=== PATIENT | female | born 1940 | race Caucasian/White ===

== ENCOUNTER 2016-06-13 01:55 | Emergency (ER) | payer MEDICARE ==
[~2016-06-13] VITALS: Ht 157.5 cm; Wt 78.8 kg
[~2016-06-13 01:55] MED LIST: ASPI81TA82 PO; GABA400C5 OR; HYDR-3580 PO; LISI-357 PO; NEBI20 PO; NEXI40CA PO; PRAM1TAB OR; ZOFR4TAB3 SL; ZOLP5TAB3 PO
[2016-06-13 02:15] VITALS: BP 103/55; PULSE 61; RESP 16; TEMP 98.3; O2SAT 94
[2016-06-13] MEDS ORDERED: COUM3TAB PO (02:56)
[2016-06-13] MEDS ORDERED: LIPI40TA PO (02:56)
[2016-06-13] MEDS ORDERED: MICR12.5 PO (02:56)
[2016-06-13] MEDS ORDERED: DIPH1TAB36 (02:56)
[2016-06-13] MEDS ORDERED: ASPI81CH CHEW (02:56)
[2016-06-13] MEDS ORDERED: GABA800T PO (02:56)
[2016-06-13] MEDS ORDERED: FOLI400T PO (02:56)
[2016-06-13] MEDS ORDERED: COUM1TAB PO (02:56)
[2016-06-13] MEDS ORDERED: BENZ1CAP34 PO (02:56)
[2016-06-13] MEDS ORDERED: METO50TA11 PO (02:56)
[2016-06-13] MEDS ORDERED: FURO40TA PO (02:56)
[2016-06-13] MEDS ORDERED: NAPR500T PO (02:56)
[2016-06-13] MEDS ORDERED: DIAZ5 PO (03:59)
[2016-06-13] MEDS ORDERED: HYDR-3533 PO (03:59)
--- NOTE | 2016-06-13 04:00 | PD ---
HPI Chief Complaint: Back/ Neck Pain or Injury Time Seen by Provider: 03:39 Travel History International Travel<30 days: No Contact w/Intl Traveler<30days: No Traveled to known affect area: No History of Present Illness HPI The patient is a 76-year-old female who had back pain tonight. She states it was severe and radiated down both legs. She denies any bladder or bowel dysfunction. She took one hydrocodone and has been taking her gabapentin regularly and the pain is now gone. There is no radiation of pain now. She denies ever having had any muscle weakness. She does have a peripheral neuropathy and numbness down both legs which is pre-existing. Apparently, the patient was very anxious and started hyperventilating at home but this has gone away now. She is on Coumadin because of atrial fibrillation. PFSH Past Medical History Hx Anticoagulant Therapy: Yes (COUMADIN ) Atrial Fibrillation: Yes Heart Rhythm Problems: Yes (SVT) Cancer: Yes (LUNG) Cardiovascular Problems: Yes (CHF, SVT, CARDAIC STEN, AFIB ) Congestive Heart Failure: Yes Diminished Hearing: No GERD: Yes Hypertension: Yes Insomnia: Yes Neurologic: Yes (NEUOPATHY) Respiratory: Yes (2014 LUNG CANCER - LOBOTOMY 3RD R SIDE ) Shingles: Yes Past Surgical History Cardiac Surgery: Yes (CARDIAC CATH, ABLATION ) Hysterectomy: Yes Tonsillectomy: Yes Social History Alcohol Use: No Tobacco Use: No Substance Use: No Allergies-Medications (Allergen,Severity, Reaction): Coded Allergies: Codeine (Verified Allergy, Unknown, 06/13/16) Morphine (Verified Allergy, Unknown, 06/13/16) Reported Meds & Prescriptions Reported Meds & Active Scripts Active Reported Naproxen 500 Mg Tab 500 Mg PO BID Benzonatate 200 Mg Cap 200 Mg PO TID PRN Metoprolol Succinate ER 24 HR (Metoprolol Succinate) 50 Mg Tab 50 Mg PO DAILY Tylenol Pm Extra Strength (Diphenhydramine-Acetaminophen) 25-500 Mg Tab Gabapentin 800 Mg Tab 800 Mg PO TID Coumadin (Warfarin) 3 Mg Tab 3 Mg PO MF Coumadin (Warfarin) 1 Mg Tab 1.5 Mg PO SUTUWETHSA Lipitor (Atorvastatin Calcium) 40 Mg Tab 40 Mg PO HS Aspirin 81 Mg Chew 81 Mg CHEW DAILY Folic Acid 400 Mcg Tab 400 Mcg PO DAILY Furosemide 40 Mg Tab 40 Mg PO DAILY Microzide (Hydrochlorothiazide) 12.5 Mg Cap 12.5 Mg PO DAILY Review of Systems Except as stated in HPI: all other systems reviewed are Neg Physical Exam Narrative GENERAL: The patient is alert, oriented 3 and no apparent distress. Her vital signs are normal. SKIN: Warm and dry. No skin rashes present. HEAD: Atraumatic. Normocephalic. EYES: Pupils equal and round. No scleral icterus. No injection or drainage. ENT: No nasal bleeding or discharge. Mucous membranes pink and moist. NECK: Trachea midline. No JVD. CARDIOVASCULAR: Regular rate and rhythm. No murmur appreciated. RESPIRATORY: No accessory muscle use. Clear to auscultation. Breath sounds equal bilaterally. GASTROINTESTINAL: Abdomen soft, non-tender, nondistended. Hepatic and splenic margins not palpable. MUSCULOSKELETAL: No obvious deformities. No clubbing. No cyanosis. No edema. Straight leg raising is normal, deep tendon reflexes are 0+1 bilaterally both patella Achilles and pinprick shows numbness bilaterally which apparently is her normal pre-existing condition. NEUROLOGICAL: Awake and alert. No obvious cranial nerve deficits. Motor grossly within normal limits. Normal speech. PSYCHIATRIC: Appropriate mood and affect; insight and judgment normal. Data Data Last Documented VS Vital Signs Date Time Temp Pulse Resp B/P Pulse Ox O2 Delivery O2 Flow Rate FiO2 06/13/16 02:15 98.3 61 16 103/55 94 MDM Medical Decision Making Medical Screen Exam Complete: Yes Emergency Medical Condition: Yes Medical Record Reviewed: Yes Differential Diagnosis Herniated nucleus pulposus, acute lumbosacral strain, anxiety/hyperventilation Narrative Course Patient appears to have an acute lumbosacral strain. She has almost no pain now and some tenderness around L5-S1 area. This tenderness is minimal and there is no deformity. Plan: The patient was told that she may benefit from a muscle relaxant and was given a choice of Valium or Flexeril. She chose Valium because she wants to sleep and she needs to relax. The patient is also given a prescription for hydrocodone 5/325. Blood work will be drawn with an SMA-6 and PT/INR because her doctor in [place] wanted this done and told her to go to the emergency department for this. Diagnosis Primary Impression: Acute low back pain Additional Instructions: The blood work will be done in several hours and you can cook pickled meat the result in the morning if you like. Do not drink alcohol or drive on the Valium. Follow- up with your engineer as scheduled. Med/Other Pt SpecificInfo: Prescription(s) given Scripts Hydrocodone-Acetaminophen (Lortab)5-325 Mg Tab1 Tab PO Q6H PRN (PAIN) #30 TAB Ref 0 Prov:Armando Rivera MD 06/13/16 Diazepam (Valium)5 Mg Tab5 Mg PO TID #30 TAB Ref 0 Prov:Armando Rivera MD 06/13/16 Disposition: 01 DISCHARGE HOME Condition: Stable Armando Rviera MD Jun 13, 2016 04:00
[2016-06-13 04:24] LABS: INTERNATIONAL NORMALIZED RATIO 1.5 RATIO; PROTHROMBIN TIME - PATIENT 17.4 SEC (9.8-11.6)
[2016-06-13 04:37] LABS: BICARBONATE 39.1 MEQ/L (21.0-32.0)
[2016-06-13 04:39] LABS: POTASSIUM 2.8 MEQ/L (3.5-5.1)
[2016-06-13] MEDS ORDERED: POTA1TAB4 PO (04:44)
[2016-06-13 04:58] VITALS: BP 112/58
[2016-06-13] MEDS ORDERED: POTASSIUM CHLORIDE 20 MEQ CONTROLLED RELEASE TAB PO ONE (05:00)
[2016-07-30] MEDS ORDERED: WARF-58 PO (11:34)
[2016-07-30] MEDS ORDERED: HYDR12.57 PO (11:34)
== END 2016-06-13 04:59 | disposition home or self-care (01) ==
LOC: PHED 01:55
DX: M54.5 Low back pain (principal); G62.9 Polyneuropathy, unspecified; I48.91 Unspecified atrial fibrillation; Z79.01 Long term (current) use of anticoagulants; I10 Essential (primary) hypertension
CPT/HCPCS: 80048; 85610; 99283

== ENCOUNTER → 2016-07-01 | Outpatient (CLI) | payer MEDICARE ==
[~2016-07-01] MED LIST changes: +ASPI81CH CHEW; -ASPI81TA82 PO; +BENZ1CAP34 PO; +CIPR250T52 PO; +COUM1TAB PO; +COUM3TAB PO; +DIAZ5 PO; +DIPH1TAB36; +FOLI400T PO; +FURO40TA PO; -GABA400C5 OR; +GABA800T PO; +HYDR-3533 PO; -HYDR-3580 PO; +HYDR12.57 PO; +K-TA10TA PO; +LIPI40TA PO; -LISI-357 PO; +METO50TA11 PO; +MICR12.5 PO; +NAPR500T PO; -NEBI20 PO; +NEUR300C PO; -NEXI40CA PO; +OXYGENTANK NAS.CANULA; +PANT40TA3 PO; +POTA1TAB4 PO; +POTA20TA5 PO; -PRAM1TAB OR; +TEMA7.5C9 PO; +WARF-58 PO; -ZOFR4TAB3 SL; -ZOLP5TAB3 PO
== END ==
LOC: PLAB 10:11
PROVIDERS: ATTEND Internal Medicine Interventional Cardiology
DX: I25.10 Atherosclerotic heart disease of native coronary artery without angina pectoris (principal); R06.00 Dyspnea, unspecified; R78.89 Finding of other specified substances, not normally found in blood; R06.02 Shortness of breath; E78.5 Hyperlipidemia, unspecified; I48.0 Paroxysmal atrial fibrillation; Z79.899 Other long term (current) drug therapy

== ENCOUNTER → 2016-07-07 | Outpatient (CLI) | payer MEDICARE ==
[2016-07-07 11:45] LABS: INTERNATIONAL NORMALIZED RATIO 2.1 RATIO
== END ==
LOC: PLAB 10:23
DX: I48.0 Paroxysmal atrial fibrillation (principal)
CPT/HCPCS: 36415; 85610

== ENCOUNTER → 2016-07-13 | Outpatient (CLI) | payer MEDICARE | LOC: PLAB 09:47 | PROVIDERS: ATTEND Internal Medicine Interventional Cardiology | DX: I48.0 Paroxysmal atrial fibrillation (principal) | CPT/HCPCS: 36415; 83880 ==

== ENCOUNTER 2016-07-17 14:47 | Inpatient (IN) | payer MEDICARE ==
[~2016-07-17] VITALS: Ht 157.5 cm; Wt 85.4 kg
[~2016-07-17 14:47] MED LIST changes: -CIPR250T52 PO; -HYDR12.57 PO; -K-TA10TA PO; -NEUR300C PO; -OXYGENTANK NAS.CANULA; -PANT40TA3 PO; -POTA20TA5 PO; -TEMA7.5C9 PO; -WARF-58 PO
[2016-07-17 14:51] VITALS: BP 116/52; PULSE 69; RESP 16; TEMP 97.8; O2SAT 92
--- NOTE | 2016-07-17 15:35 | PD ---
HPI Chief Complaint: General Weakness Time Seen by Provider: 15:24 Travel History International Travel<30 days: No Contact w/Intl Traveler<30days: No Traveled to known affect area: No History of Present Illness HPI Patient presents for generalized weakness. Reports a cough with mild dyspnea. Reports a history of lung cancer with lobectomy, atrial fibrillation, heart failure, coronary artery disease, SVT and neuropathy. Reports lower extremity swelling that is progressively getting worse over last [address] Encarnacion. Reports difficulty urinating. Denies nausea vomiting diarrhea or fever. Denies chest pain. Compliant with Lasix for fluid retention, Coumadin for anticoagulation with A. fib, beta larisa for rate control. Denies any history of hypothyroidism. PFSH Past Medical History Hx Anticoagulant Therapy: Yes (COUMADIN ) Atrial Fibrillation: Yes Heart Rhythm Problems: Yes (SVT) Cancer: Yes (LUNG) Cardiovascular Problems: Yes (CHF, SVT, CARDAIC STEN, AFIB ) Congestive Heart Failure: Yes Diminished Hearing: No GERD: Yes Hypertension: Yes Insomnia: Yes Neurologic: Yes (NEUOPATHY) Respiratory: Yes (2014 LUNG CANCER - LOBOTOMY 3RD R SIDE ) Shingles: Yes Influenza Vaccination: Yes ?: Not Past Surgical History Cardiac Surgery: Yes (CARDIAC CATH, ABLATION ) Hysterectomy: Yes Tonsillectomy: Yes Social History Alcohol Use: No Tobacco Use: No Substance Use: No Allergies-Medications (Allergen,Severity, Reaction): Coded Allergies: Codeine (Verified Allergy, Unknown, 07/17/16) Morphine (Verified Allergy, Unknown, 07/17/16) Reported Meds & Prescriptions Reported Meds & Active Scripts Active Lortab (Hydrocodone-Acetaminophen) 5-325 Mg Tab 1 Tab PO Q6H PRN Reported Naproxen 500 Mg Tab 500 Mg PO BID Metoprolol Succinate ER 24 HR (Metoprolol Succinate) 50 Mg Tab 50 Mg PO DAILY Tylenol Pm Extra Strength (Diphenhydramine-Acetaminophen) 25-500 Mg Tab Gabapentin 800 Mg Tab 800 Mg PO TID Coumadin (Warfarin) 3 Mg Tab 3 Mg PO MF Coumadin (Warfarin) 1 Mg Tab 1.5 Mg PO SUTUWETHSA Lipitor (Atorvastatin Calcium) 40 Mg Tab 40 Mg PO HS Aspirin 81 Mg Chew 81 Mg CHEW DAILY Folic Acid 400 Mcg Tab 400 Mcg PO DAILY Furosemide 40 Mg Tab 20 Mg PO DAILY Review of Systems General / Constitutional: No: Fever Eyes: No: Visual changes HENT: No: Headaches Cardiovascular: No: Chest Pain or Discomfort Respiratory: Positive: Cough, No: Shortness of Breath Gastrointestinal: No: Abdominal Pain Genitourinary: Positive: Dysuria Musculoskeletal: Positive: Edema, No: Pain Skin: No Rash Neurologic: Positive: Weakness Psychiatric: No: Depression Endocrine: No: Polydipsia Hematologic/Lymphatic: No: Easy Bruising Physical Exam Narrative GENERAL: Well-nourished, well-developed patient. SKIN: Focused skin assessment warm/dry. HEAD: Normocephalic. EYES: No scleral icterus. No injection or drainage. NECK: Supple, trachea midline. No JVD or lymphadenopathy. CARDIOVASCULAR: Regular rate and rhythm without murmurs, gallops, or rubs. RESPIRATORY: Breath sounds decreased right lower lobe. No accessory muscle use. GASTROINTESTINAL: Abdomen soft, non-tender, nondistended. MUSCULOSKELETAL: No cyanosis, 3+ edema. BACK: Nontender without obvious deformity. No CVA tenderness. Data Data Last Documented VS Vital Signs Date Time Temp Pulse Resp B/P Pulse Ox O2 Delivery O2 Flow Rate FiO2 07/17/16 15:49 98 2 07/17/16 15:42 64 18 115/52 Room Air 07/17/16 14:51 97.8 Orders Complete Blood Count With Diff (07/17/16 15:24) Comprehensive Metabolic Panel (07/17/16 15:24) Urinalysis - C+S If Indicated (07/17/16 15:24) Chest, Single Ap (07/17/16 ) B-Type Natriuretic Peptide (07/17/16 15:24) Urine Culture (07/17/16 15:40) Ceftriaxone Inj (Rocephin Inj) (07/17/16 16:15) Prothrombin Time / Inr (Pt) (07/17/16 16:13) Act Partial Throm Time (Ptt) (07/17/16 16:13) Admit Order (Ed Use Only) (07/17/16 16:30) Labs Laboratory Tests Test 07/17/16 07/17/16 07/17/16 15:11 15:15 15:40 White Blood Count 9.0 TH/MM3 Red Blood Count 3.20 MIL/MM3 Hemoglobin 8.4 GM/DL Hematocrit 25.6 % Mean Corpuscular Volume 80.1 FL Mean Corpuscular Hemoglobin 26.1 PG Mean Corpuscular Hemoglobin 32.6 % Concent Red Cell Distribution Width 19.2 % Platelet Count 337 TH/MM3 Mean Platelet Volume 7.3 FL Neutrophils (%) (Auto) 64.0 % Lymphocytes (%) (Auto) 19.9 % Monocytes (%) (Auto) 8.9 % Eosinophils (%) (Auto) 6.5 % Basophils (%) (Auto) 0.7 % Neutrophils # (Auto) 5.7 TH/MM3 Lymphocytes # (Auto) 1.8 TH/MM3 Monocytes # (Auto) 0.8 TH/MM3 Eosinophils # (Auto) 0.6 TH/MM3 Basophils # (Auto) 0.1 TH/MM3 CBC Comment DIFF FINAL Differential Comment Prothrombin Time 44.6 SEC Prothromb Time International 3.8 RATIO Ratio Activated Partial 40.6 SEC Thromboplast Time Sodium Level 141 MEQ/L Potassium Level 3.3 MEQ/L Chloride Level 99 MEQ/L Carbon Dioxide Level 32.8 MEQ/L Anion Gap 9 MEQ/L Blood Urea Nitrogen 31 MG/DL Creatinine 1.80 MG/DL Estimat Glomerular Filtration 27 ML/MIN Rate Random Glucose 135 MG/DL Calcium Level 8.6 MG/DL Total Bilirubin 0.5 MG/DL Aspartate Amino Transf 74 U/L (AST/SGOT) Alanine Aminotransferase 37 U/L (ALT/SGPT) Alkaline Phosphatase 91 U/L B-Type Natriuretic Peptide 415 PG/ML Total Protein 6.0 GM/DL Albumin 3.1 GM/DL Total Creatine Kinase 87 U/L Urine Collection Type CLEAN CATCH Urine Color YELLOW Urine Turbidity MOD Urine pH 5.5 Urine Specific [place] 1.016 Urine Protein NEG mg/dL Urine Glucose (UA) NEG mg/dL Urine Ketones TRACE mg/dL Urine Occult Blood NEG Urine Nitrite NEG Urine Bilirubin NEG Urine Leukocyte Esterase LARGE Urine RBC 0-3 /hpf Urine WBC 100-200 /hpf Urine WBC Clumps FEW Urine Squamous Epithelial > 8 /hpf Cells Urine Transitional Epithelial 0-5 /hpf Cells Urine Amorphous Sediment FEW Urine Bacteria MANY /hpf Microscopic Urinalysis Comment CULTURE INDICATED Urine Collection Time 1540 MDM Medical Decision Making Medical Screen Exam Complete: Yes Emergency Medical Condition: Yes Differential Diagnosis Pneumonia, viral infection, CHF exacerbation, pulmonary edema, UTI, fluid retention Narrative Course Assessment and plan discussed with patient and at bedside. EKG revealed sinus rhythm with PACs rate of 71 questionable first degree block. Physician Communication Physician Communication Case discussed and care transferred to Dr. Hoff. Grayson Lopes MD Jul 17, 2016 15:35
[2016-07-17 15:37] LABS: AUTOMATED NEUTROPHIL # 5.7 TH/MM3 (1.8-7.7); BASOPHIL # 0.1 TH/MM3 (0-0.2); BASOPHIL % 0.7 % (0.0-2.0); EOSINOPHIL # 0.6 TH/MM3 (0-0.4); EOSINOPHIL % 6.5 % (0.0-4.0); HEMATOCRIT 25.6 % (35.0-46.0); HEMO FLAGS DIFF FINAL; LYMPH % 19.9 % (9.0-44.0); LYMPHOCYTE # 1.8 TH/MM3 (1.0-4.8); MEAN CELL VOLUME 80.1 FL (80.0-100.0); MEAN CORPUSCULAR HEMOGLOBIN 26.1 PG (27.0-34.0); MEAN CORPUSCULAR HGB CONC 32.6 % (32.0-36.0); MONO % 8.9 % (0.0-8.0); PLATELET COUNT 337 TH/MM3 (150-450); RED CELL DISTRIBUTION WIDTH 19.2 % (11.6-17.2)
[2016-07-17 15:42] VITALS: BP 115/52; PULSE 64; RESP 18; O2SAT 97
[2016-07-17 15:46] LABS: CHLORIDE 99 MEQ/L (98-107); POTASSIUM 3.3 MEQ/L (3.5-5.1); SODIUM (NA) 141 MEQ/L (136-145)
[2016-07-17 15:46] LABS: BLOOD, URINE NEG (NEG); GLUCOSE,URINE NEG (NEG); KETONE, URINE TRACE mg/dL (NEG); NITRITE,URINE NEG (NEG); PH, URINE 5.5 (5.0-8.5)
[2016-07-17 15:50] LABS: ANION GAP 9 MEQ/L (5-15); BICARBONATE 32.8 MEQ/L (21.0-32.0); BLOOD UREA NITROGEN 31 MG/DL (7-18)
[2016-07-17 15:52] LABS: BACTERIA, URINE MANY /hpf; COMMENT (UR) CULTURE INDICATED; CULTURE IF INDICATED CULTURE INDICATED; METHOD OF COLLECTION CLEAN CATCH; RBC, URINE 0-3 /hpf (0-3); SQUAMOUS EPITHELIAL CELL URINE > 8 /hpf (0-5); URINE COLOR YELLOW (YELLW/STRAW); WBC, URINE 100-200 /hpf (0-5)
[2016-07-17 15:53] LABS: TRANSITIONAL EPI CELLS, URINE 0-5 /hpf
[2016-07-17 15:53] LABS: ALT (GPT) 37 U/L (10-53); AST (GOT) 74 U/L (15-37); GLOMERULAR FILTRATION RATE 27 ML/MIN (>89)
[2016-07-17 15:54] LABS: TOTAL BILIRUBIN ADULT 0.5 MG/DL (0.2-1.0)
[2016-07-17 15:55] LABS: ALKALINE PHOSPHATASE 91 U/L (45-117)
--- NOTE | 2016-07-17 16:12 | RADHPO ---
EXAM DATE/TIME: 07/17/2016 15:43 [facility] COMPARISON: No previous studies available for comparison. INDICATIONS : Patient states chest pressure today. MEDICAL HISTORY : Hypercholesterolemia. SURGICAL HISTORY : Coronary artery stent. ENCOUNTER: Initial ACUITY: 1 day PAIN SCORE: 4/10 LOCATION: Bilateral chest FINDINGS: A single view of the chest demonstrates the lungs to be grossly clear. There is blunting of the right costophrenic angle which could represent either a small effusion versus pleural thickening. Otherwis e no significant pleural effusions are seen. The heart size is within normal limits. There is no pulm onary edema. The left lung is grossly clear. The bony structures are grossly intact.. CONCLUSION: Mild blunting of the right costophrenic angle which could represent either small effusion versus pleu ral thickening. Otherwise, the lungs are clear bilaterally. Juan Alberto Lopez MD on July 17, 2016 at 16:10 Board Certified Radiologist. This report was verified electronically.
[2016-07-17] MEDS ORDERED: cefTRIAXone INJ 1,000 MG in SODIUM CHLORIDE 0.9% INJ 100 ML IV ONE (16:15)
--- NOTE | 2016-07-17 16:20 | PD ---
Physical Exam Narrative The patient was initially evaluated by the previous provider and signed out to me at the beginning of my shift pending labs, chest x-ray, and disposition. See his note for further details. Briefly this is a 76-year-old female with history of lung cancer with right lower lobe lobectomy, CAD, CABG, A. fib on Coumadin, currently being treated by multimedia author Dr. Encarnacion, here for evaluation of generalized weakness, cough, difficulty with urination. On physical exam the patient is resting comfortably , keeping her eyes closed. There are no focal neurologic deficits. Her lung sounds are clear and equal bilaterally. She is in no respiratory distress. She has mild bilateral lower extremity edema. Abdominal exam is benign. Initial vital signs show heart rate 69, blood pressure 116/52, pulse ox 92% on room air, oral temp of 97.8F. CBC is remarkable for hemoglobin of 8.4 and a hematocrit of 25.6. The patient had labs drawn on 07/02/16 and her hemoglobin was 9.3, hematocrit 28.5. Her stool is heme-negative and brown. CMP is remarkable for potassium 3.3, bicarbonate 32.8, BUN 31, creatinine 1.8, GFR 27 which is slightly worse than her baseline. BNP is 415. UA is suggestive of UTI. The patient was started on Rocephin. Chest x-ray shows mild blunting of the right costophrenic angle which could refer percent either small effusion versus pleural thickening, otherwise lungs are clear bilaterally. EKG shows sinus rhythm, rate 71, left axis deviation, low QRS voltages in precordial leads , Q waves in inferior leads. Patient was made aware of all findings. She feels too weak to go home to take care of herself. The also agrees with this. She will be admitted for overnight observation for UTI, generalized weakness, anemia. Case discussed with hospitalist Dr. Lau who will admit the patient to his service. Data Data Last Documented VS Vital Signs Date Time Temp Pulse Resp B/P Pulse Ox O2 Delivery O2 Flow Rate FiO2 07/17/16 15:49 98 2 07/17/16 15:42 64 18 115/52 Room Air 07/17/16 14:51 97.8 Orders Complete Blood Count With Diff (07/17/16 15:24) Comprehensive Metabolic Panel (07/17/16 15:24) Urinalysis - C+S If Indicated (07/17/16 15:24) Chest, Single Ap (07/17/16 ) B-Type Natriuretic Peptide (07/17/16 15:24) Urine Culture (07/17/16 15:40) Ceftriaxone Inj (Rocephin Inj) (07/17/16 16:15) Prothrombin Time / Inr (Pt) (07/17/16 16:13) Act Partial Throm Time (Ptt) (07/17/16 16:13) Admit Order (Ed Use Only) (07/17/16 16:30) Labs Laboratory Tests Test 07/17/16 07/17/16 15:11 15:40 White Blood Count 9.0 TH/MM3 Red Blood Count 3.20 MIL/MM3 Hemoglobin 8.4 GM/DL Hematocrit 25.6 % Mean Corpuscular Volume 80.1 FL Mean Corpuscular Hemoglobin 26.1 PG Mean Corpuscular Hemoglobin 32.6 % Concent Red Cell Distribution Width 19.2 % Platelet Count 337 TH/MM3 Mean Platelet Volume 7.3 FL Neutrophils (%) (Auto) 64.0 % Lymphocytes (%) (Auto) 19.9 % Monocytes (%) (Auto) 8.9 % Eosinophils (%) (Auto) 6.5 % Basophils (%) (Auto) 0.7 % Neutrophils # (Auto) 5.7 TH/MM3 Lymphocytes # (Auto) 1.8 TH/MM3 Monocytes # (Auto) 0.8 TH/MM3 Eosinophils # (Auto) 0.6 TH/MM3 Basophils # (Auto) 0.1 TH/MM3 CBC Comment DIFF FINAL Differential Comment Sodium Level 141 MEQ/L Potassium Level 3.3 MEQ/L Chloride Level 99 MEQ/L Carbon Dioxide Level 32.8 MEQ/L Anion Gap 9 MEQ/L Blood Urea Nitrogen 31 MG/DL Creatinine 1.80 MG/DL Estimat Glomerular Filtration 27 ML/MIN Rate Random Glucose 135 MG/DL Calcium Level 8.6 MG/DL Total Bilirubin 0.5 MG/DL Aspartate Amino Transf 74 U/L (AST/SGOT) Alanine Aminotransferase 37 U/L (ALT/SGPT) Alkaline Phosphatase 91 U/L B-Type Natriuretic Peptide 415 PG/ML Total Protein 6.0 GM/DL Albumin 3.1 GM/DL Urine Collection Type CLEAN CATCH Urine Color YELLOW Urine Turbidity MOD Urine pH 5.5 Urine Specific [place] 1.016 Urine Protein NEG mg/dL Urine Glucose (UA) NEG mg/dL Urine Ketones TRACE mg/dL Urine Occult Blood NEG Urine Nitrite NEG Urine Bilirubin NEG Urine Leukocyte Esterase LARGE Urine RBC 0-3 /hpf Urine WBC 100-200 /hpf Urine WBC Clumps FEW Urine Squamous Epithelial > 8 /hpf Cells Urine Transitional Epithelial 0-5 /hpf Cells Urine Amorphous Sediment FEW Urine Bacteria MANY /hpf Microscopic Urinalysis Comment CULTURE INDICATED Urine Collection Time 1540 MDM Supervised Visit with JERO: No Diagnosis Primary Impression: Generalized weakness Additional Impressions: UTI (urinary tract infection) Qualified Code: N39.0 - Urinary tract infection without hematuria, site unspecified Anemia Qualified Code: D64.9 - Anemia, unspecified type Renal insufficiency Admitting Information Admitting Physician Requests: Observation Seun Hoff MD Jul 17, 2016 16:20
[2016-07-17 16:31] LABS: APTT (PATIENT) 40.6 SEC (24.3-30.1); INTERNATIONAL NORMALIZED RATIO 3.8 RATIO; PROTHROMBIN TIME - PATIENT 44.6 SEC (9.8-11.6)
[2016-07-17 16:43] VITALS: BP 124/56; PULSE 66; RESP 18; O2SAT 98
[2016-07-17] MEDS ORDERED: BISACODYL 10 MG SUPP RECTAL PRN (16:45)
[2016-07-17] MEDS ORDERED: SODIUM CHLORIDE 0.9% FLUSH 10 ML FLUSH IV FLUSH PRN (16:45)
[2016-07-17] MEDS ORDERED: NALOXONE HCL 0.4 MG/ML AMP IV PRN (16:45)
[2016-07-17] MEDS ORDERED: ONDANSETRON HCL 4 MG/2 ML VIAL IVP PRN (16:45)
[2016-07-17] MEDS ORDERED: WARFARIN SOD 1 MG TAB PO SCH (16:45)
[2016-07-17 18:07] VITALS: BP 128/78; PULSE 68; RESP 18; TEMP 98; O2SAT 96
--- NOTE | 2016-07-17 18:44 | RADHPO ---
EXAM DATE/TIME: 07/17/2016 18:02 [facility] COMPARISON: No previous studies available for comparison. INDICATIONS : Flank pain. MEDICAL HISTORY : Carcinoma, lung. CHF. SVT. A-fib. Neuropathy. SURGICAL HISTORY : Tonsillectomy. Cardiac cath. Right lung lobotomy. ENCOUNTER: Initial ACUITY: 2 days PAIN SCORE: 8/10 LOCATION: Bilateral flank MEASUREMENTS: RIGHT KIDNEY: 9.2 x 4.9 x 5.0 cm LEFT KIDNEY: 9.7 x 5.4 x 4.4 cm FINDINGS: RIGHT KIDNEY: Renal cortex is thinned . No hydronephrosis, stone, or mass. LEFT KIDNEY: Renal cortex is thin and. No hydronephrosis, stone. There appears to be a complex cyst in the midpol e measuring 1.3 cm. The upper pole appears to be probably lobulated. Hard to exclude a small mass in this area. BLADDER: Paniagua catheter in place.. CONCLUSION: 1. No evidence of hydronephrosis. 2. There is cortical thinning of both kidneys. 3. There appears to be a complex cyst along the midpole left kidney. 4. The upper pole the left looks somewhat lobulated. Cannot completely exclude a mass in this locatio n. Therefore, if clinically indicated recommend a CT scan of the abdomen with IV contrast Juan Alberto Lopez MD on July 17, 2016 at 18:39 Board Certified Radiologist. This report was verified electronically.
[2016-07-17] MEDS: GABAPENTIN 300 MG CAP PO SCH (19:16)
[2016-07-17] MEDS: HEPARIN SODIUM - SQ 10,000 UNITS/ML VIAL SQ SCH (19:17)
[2016-07-17 20:40] VITALS: BP 114/46; PULSE 70; RESP 16; TEMP 98.1; O2SAT 97
[2016-07-17] MEDS: SODIUM CHLORIDE 0.9% FLUSH 10 ML FLUSH IV FLUSH SCH (21:00)
[2016-07-17] MEDS: diphenhydrAMINE HCL 25 MG CAP PO PRN (21:48)
[2016-07-17] MEDS ORDERED: NAPROXEN 250 MG TAB PO ONE (23:45)
[2016-07-18] VITALS (8 sets, daily range): BP systolic 113–151; BP diastolic 53–66; PULSE 69–74; RESP 15–18; TEMP 96.5–98; O2SAT 90–100
[2016-07-18] MEDS: GABAPENTIN 300 MG CAP PO SCH ×2 (07:14→17:58)
[2016-07-18] MEDS: HEPARIN SODIUM - SQ 10,000 UNITS/ML VIAL SQ SCH ×2 (07:14→21:02)
[2016-07-18 08:02] LABS: CHLORIDE 99 MEQ/L (98-107); POTASSIUM 3.5 MEQ/L (3.5-5.1); SODIUM (NA) 142 MEQ/L (136-145)
[2016-07-18 08:08] LABS: AUTOMATED NEUTROPHIL # 4.9 TH/MM3 (1.8-7.7); BASOPHIL # 0.1 TH/MM3 (0-0.2); BASOPHIL % 0.7 % (0.0-2.0); EOSINOPHIL # 0.5 TH/MM3 (0-0.4); HEMATOCRIT 24.6 % (35.0-46.0); HEMO FLAGS DIFF FINAL; LYMPHOCYTE # 1.6 TH/MM3 (1.0-4.8); MEAN CELL VOLUME 80.8 FL (80.0-100.0); MEAN CORPUSCULAR HGB CONC 32.1 % (32.0-36.0); MONO % 8.5 % (0.0-8.0); NEUT % 62.8 % (16.0-70.0); PLATELET COUNT 278 TH/MM3 (150-450); RED BLOOD COUNT 3.05 MIL/MM3 (4.00-5.30); RED CELL DISTRIBUTION WIDTH 19.9 % (11.6-17.2); WHITE BLOOD COUNT 7.8 TH/MM3 (4.0-11.0)
[2016-07-18 08:09] LABS: ANION GAP 10 MEQ/L (5-15); BICARBONATE 32.8 MEQ/L (21.0-32.0)
[2016-07-18 08:10] LABS: ALT (GPT) 28 U/L (10-53); AST (GOT) 45 U/L (15-37); BLOOD UREA NITROGEN 33 MG/DL (7-18)
[2016-07-18 08:11] LABS: GLOMERULAR FILTRATION RATE 34 ML/MIN (>89)
[2016-07-18 08:12] LABS: TOTAL BILIRUBIN ADULT 0.6 MG/DL (0.2-1.0)
[2016-07-18 08:13] LABS: ALKALINE PHOSPHATASE 85 U/L (45-117)
[2016-07-18 09:20] LABS: INTERNATIONAL NORMALIZED RATIO 3.1 RATIO; PROTHROMBIN TIME - PATIENT 35.7 SEC (9.8-11.6)
[2016-07-18] MEDS: PIPERACIL-TAZO 3.375 GM PREMIX 50 ML IV SCH ×2 (09:35→17:58)
[2016-07-18] MEDS: METOPROLOL SUCCINATE 50 MG EXTENDED RELEASE TAB PO SCH (09:35)
[2016-07-18] MEDS: SODIUM CHLORIDE 0.9% FLUSH 10 ML FLUSH IV FLUSH SCH ×2 (09:35→21:00)
[2016-07-18] MEDS ORDERED: RESP: ALBUTEROL 1.25 MG/3 ML NEB (PRN) NEB (10:00)
--- NOTE | 2016-07-18 10:30 | EKG ---
Date Performed: 07/17/2016 Time Performed: 14:58:08 PTAGE: 76 years EKG: Sinus rhythm with PAC(s) Possible inferior infarct - age undetermined QRS changes V3/V4 may be due to LVH but can not rule out anterior infarct Low QRS voltages in precordial leads Compared to prior tracing no signi ficant change Abnormal ECG PREVIOUS TRACING : 06/09/2004 13.52 DOCTOR: Tyler Mccann Interpretating Date/Time 07/18/2016 10:26:02
[2016-07-18] MEDS ORDERED: DIATRIZOATE MEGLUM/DIATRIZOATE SOD 9 ML CUP PO ONE (12:30)
--- NOTE | 2016-07-18 15:47 | RADHPO ---
EXAM DATE/TIME: 07/18/2016 14:46 This report includes an Addendum and supersedes previous reports for this exam. [facility] COMPARISON: No previous studies available for comparison. INDICATIONS : General weakness. ORAL CONTRAST: No oral contrast ingested. RADIATION DOSE: 19.84 CTDIvol (mGy) MEDICAL HISTORY : Cardiovascular disease. Carcinoma, lung. SURGICAL HISTORY : Hysterectomy. ENCOUNTER: Initial ACUITY: 1 day PAIN SCALE: 4/10 LOCATION: abdomen TECHNIQUE: Volumetric scanning of the abdomen and pelvis was performed. Using automated exposure control and ad justment of the mA and/or kV according to patient size, radiation dose was kept as low as reasonably achievable to obtain optimal diagnostic quality images. FINDINGS: There is a small right-sided pleural effusion. Linear atelectasis or scarring at the lung bases. No a cute findings identified in the liver, spleen, adrenals, kidneys or pancreas. Dependent gallstones pr esent the gallbladder. No blurry ductal dilatation. There is sigmoid diverticulosis without evidence for diverticulitis. Paniagua catheter present in decomp ressed bladder. Mild anasarca. CONCLUSION: Small right effusion with minimal linear atelectasis and scarring at the lung bases. Small hiatal her dalila. Calcified gallstones without ductal dilatation. No acute findings within the abdomen and pelvis. Mild anasarca. Colonic diverticulosis. Dutch Ulloa MD on July 18, 2016 at 15:40 Board Certified Radiologist. This report was verified electronically. ADDENDUM: I reviewed prior ultrasound from July 17. The lobulated appearance in the upper left kidney seen on u ltrasound is not appreciated on CT examination. Exam however was performed without contrast and subtl e renal solid lesions could easily be missed on noncontrast CT. If renal function is adequate, kidney s would be better evaluated with contrast CT examination or MRI. Dutch Ulloa MD on July 19, 2016 at 21:11 Board Certified Radiologist. This report was verified electronically.
[2016-07-18] MEDS ORDERED: WARFARIN SOD 1 MG TAB PO SCH (16:00)
[2016-07-18] MEDS ORDERED: cefTRIAXone INJ 1,000 MG in SODIUM CHLORIDE 0.9% INJ 100 ML IV SCH (16:00)
[2016-07-18] MEDS ORDERED: TEMAZEPAM 7.5 MG CAP PO PRN (17:00)
[2016-07-18] MEDS: diphenhydrAMINE HCL 25 MG CAP PO PRN (21:02)
[2016-07-18] MEDS ORDERED: POTASSIUM CHLORIDE 20 MEQ CONTROLLED RELEASE TAB PO ONE (22:30)
[2016-07-18] MEDS ORDERED: FUROSEMIDE 20 MG/2 ML VIAL IV PUSH ONE (22:30)
--- NOTE | 2016-07-18 22:38 | HHI.HP ---
HPI Service [facility] Primary Care Physician Non-Staff Admission Diagnosis generalized weakness, UTI, anemia, renal insufficiency Diagnoses: Chief Complaint: somnolence Travel History International Travel<30 Days: No Contact w/Intl Traveler <30 Da: No Traveled to Known Affected Are: No History of Present Illness Patient presents to ER for 1 month history of progressively worsening somnolence , generalized fatigue, shortness of breath with exertion without chest pain, as well as bilateral lower extremity swelling. She also reports a one-month history of bilateral, constant, sharp low back pain worsened with movement. Recent increase of gabapentin dose 1 month ago. Patient said she has been experience somnolent over the past month, will fall asleep while sitting up. Friends say that she appears drunk at times. Patient had an echocardiogram 1.5 months ago which was reportedly okay. She denies any dysuria. Denies any fevers, nausea, vomiting, diarrhea, constipation. Patient left [place] for [place] 1 month ago on vacation. She reports that creatinine prior to vacation was initially 1.4, however just before vacation 1.5. Echocardiogram performed prior to her vacation reportedly without any change according to her primary airplane inspector back home. Again, she does note that gabapentin was increased one month ago. She has been taking naproxen as needed for her back. She denies any black tarry stools or bloody stool. Review of Systems performed and negative except for HPI and past medical history. Past Family Social History Past Medical History Congestive heart failure GERD Restless leg syndrome Hyperlipidemia Hypertension Anxiety Chronic musculoskeletal pain Past Surgical History Cardiac catheter. Ablation for arrhythmia. Right lower lobectomy for lung cancer. In 2015. Patient says she did not require any chemotherapy. Hysterectomy Cervical fusion Rotator cuff surgery Cataract surgery Reported Medications Lortab (Hydrocodone-Acetaminophen) 5-325 Mg Tab 1 Tab PO Q6H PRN Reported Naproxen 500 Mg Tab 500 Mg PO BID Metoprolol Succinate ER 24 HR (Metoprolol Succinate) 50 Mg Tab 50 Mg PO DAILY Tylenol Pm Extra Strength (Diphenhydramine-Acetaminophen) 25-500 Mg Tab Gabapentin 800 Mg Tab 800 Mg PO TID Coumadin (Warfarin) 3 Mg Tab 3 Mg PO MF Coumadin (Warfarin) 1 Mg Tab 1.5 Mg PO SUTUWETHSA Lipitor (Atorvastatin Calcium) 40 Mg Tab 40 Mg PO HS Aspirin 81 Mg Chew 81 Mg CHEW DAILY Folic Acid 400 Mcg Tab 400 Mcg PO DAILY Furosemide 40 Mg Tab 20 Mg PO DAILY Allergies: Coded Allergies: Codeine (Verified Allergy, Unknown, 07/17/16) Morphine (Verified Allergy, Unknown, 07/17/16) Family History Mother at advanced age from kidney cancer reportedly. Father from traumatic injury. Social History Patient is nonsmoker, nondrinker, denies illicit drugs. Physical Exam Vital Signs Vital Signs Date Time Temp Pulse Resp B/P Pulse Ox O2 Delivery O2 Flow Rate FiO2 07/18/16 16:00 97.7 72 18 126/60 97 07/18/16 12:00 97.8 69 18 113/53 97 07/18/16 08:00 96.5 74 18 123/61 97 07/18/16 07:57 90 21 07/18/16 07:48 98 Nasal Cannula 2.00 07/18/16 00:36 71 151/66 07/18/16 00:35 98.0 71 15 151/66 100 07/18/16 00:35 71 151/66 Physical Exam GENERAL: This is a well-nourished, well-developed patient, in no apparent distress.she is alert and oriented 3. at bedside. Says she appears to have improved. SKIN: No rashes, ecchymoses or lesions. Cool and dry. HEAD: Atraumatic. Normocephalic. No temporal or scalp tenderness. EYES: Pupils equal round and reactive. Extraocular motions intact. No scleral icterus. No injection or drainage. ENT: Nose without bleeding, purulent drainage or septal hematoma. Throat without erythema, tonsillar hypertrophy or exudate. Uvula midline. Airway patent. NECK: Trachea midline. No JVD or lymphadenopathy, although exam limited by obesity. Supple, nontender, no meningeal signs. CARDIOVASCULAR: Regular rate and rhythm without murmurs, gallops, or rubs. RESPIRATORY: Clear to auscultation. Breath sounds equal bilaterally. No wheezes , rales, or rhonchi. GASTROINTESTINAL: Abdomen soft, non-tender, nondistended. No hepato-splenomegaly , or palpable masses. No guarding. MUSCULOSKELETAL: Extremities without clubbing, cyanosis. No joint tenderness, effusion. patient does have 2+ bilateral lower extremity edema. Faint erythema. Some noninfected appearing excoriations.No calf tenderness. Negative Homans sign bilaterally. NEUROLOGICAL: Awake and alert. Cranial nerves II through XII intact. Motor and sensory grossly within normal limits. Five out of 5 muscle strength in all muscle groups. Normal speech. Laboratory Laboratory Tests Test 07/18/16 07/18/16 06:50 08:51 White Blood Count 7.8 Red Blood Count 3.05 Hemoglobin 7.9 Hematocrit 24.6 Mean Corpuscular Volume 80.8 Mean Corpuscular Hemoglobin 26.0 Mean Corpuscular Hemoglobin 32.1 Concent Red Cell Distribution Width 19.9 Platelet Count 278 Mean Platelet Volume 7.4 Neutrophils (%) (Auto) 62.8 Lymphocytes (%) (Auto) 21.0 Monocytes (%) (Auto) 8.5 Eosinophils (%) (Auto) 7.0 Basophils (%) (Auto) 0.7 Neutrophils # (Auto) 4.9 Lymphocytes # (Auto) 1.6 Monocytes # (Auto) 0.7 Eosinophils # (Auto) 0.5 Basophils # (Auto) 0.1 CBC Comment DIFF FINAL Differential Comment Sodium Level 142 Potassium Level 3.5 Chloride Level 99 Carbon Dioxide Level 32.8 Anion Gap 10 Blood Urea Nitrogen 33 Creatinine 1.50 Estimat Glomerular Filtration 34 Rate Random Glucose 95 Calcium Level 8.6 Total Bilirubin 0.6 Aspartate Amino Transf 45 (AST/SGOT) Alanine Aminotransferase 28 (ALT/SGPT) Alkaline Phosphatase 85 Total Protein 5.8 Albumin 2.9 Prothrombin Time 35.7 Prothromb Time International 3.1 Ratio Date/Time Procedure Status Source Growth 07/17/16 15:40 Urine Culture - Preliminary Resulted Urine Clean Catch IMMATURE GROWTH - REINCUBATE Result Diagram: 07/18/16 0650 07/18/16 0650 Imaging Last Impressions Abdomen/Pelvis CT 07/18/16 0000 Signed Impressions: Service Date/Time: Monday, July 18, 2016 14:46 - CONCLUSION: Small right effusion with minimal linear atelectasis and scarring at the lung bases. Small hiatal hernia. Calcified gallstones without ductal dilatation. No acute findings within the abdomen and pelvis. Mild anasarca. Colonic diverticulosis. Dutch Ulloa MD Renal Ultrasound 07/17/16 0000 Signed Impressions: Service Date/Time: Sunday, July 17, 2016 18:02 - CONCLUSION: 1. No evidence of hydronephrosis. 2. There is cortical thinning of both kidneys. 3. There appears to be a complex cyst along the midpole left kidney. 4. The upper pole the left looks somewhat lobulated. Cannot completely exclude a mass in this location. Therefore, if clinically indicated recommend a CT scan of the abdomen with IV contrast Juan Alberto Lopez MD Chest X-Ray 07/17/16 0000 Signed Impressions: Service Date/Time: Sunday, July 17, 2016 15:43 - CONCLUSION: Mild blunting of the right costophrenic angle which could represent either small effusion versus pleural thickening. Otherwise, the lungs are clear bilaterally. Juan Alberto Lopez MD Assessment and Plan Assessment and Plan //Toxic encephalopathy. -Still oriented. -Likely secondary to gabapentin buildup and toxicity due to kidney failure. Recent increase in gabapentin dosage -No focal signs or symptoms. We will keep on lower dose of gabapentin. Continue to treat UTI as below - Appears to already be improving. Continue to monitor. //Urinary tract infection. Acute. -Grossly positive urinalysis. Await urine culture. -Due to concern for anatomic abnormality regarding kidney, ceftriaxone was switched to Zosyn. CT abdomen with no acute findings. Patient with known history of kidney mass. -Follow up cultures. Continue antibiotics. //Acute kidney injury.. Avoid any naproxen. Improving with fluids. Continue to monitor. //History of CHF. //Fluid overload. -Bilateral lower extremity edema. -BNP elevated in the 400s.. Possible small pleural effusion however this is likely secondary to right upper lobectomy. -Gentle diuresis, fluid restrictions. Avoid NSAIDs //History of atrial fibrillation. Continue beta larisa. Continue warfarin. //Hyperlipidemia. Chronic. Continue statin //Kidney mass. -Possible left kidney mass seen on ultrasound. Due to acute kidney injury with a history of CHF, noncontrast CT was performed for evaluation of mass. 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 -She'll need to follow-up with primary care as outpatient. //Anemia. Iron studies. B12. Reticulocyte. Possibly symptomatic. Could be secondary to silent GI bleed from ulcer versus kidney disease, versus anemia of inflammation from chronic infection. Place on Protonix. Follow-up labs.. -Patient appears to be improving on lower dose of gabapentin, improvement in renal function. If patient is symptomatic, transfuse for hemoglobin less than 8. Otherwise less than 7. -Consult gastroenterology, as patient may need upper endoscopy pending lab studies.. //Sleep disorder. Temazepam as necessary. Discussed Condition With patient, . Physician Certification 2 Midnight Certification Type: Admission for Inpatient Services Order for Inpatient Services The services are ordered in accordance with Medicare regulations or non- Medicare payer requirements, as applicable. In the case of services not specified as inpatient-only, they are appropriately provided as inpatient services in accordance with the 2-midnight benchmark. Estimated LOS (days): 2 days is the estimated time the patient will need to remain in the hospital, assuming treatment plan goals are met and no additional complications. Post-Hospital Plan: Not yet determined Brandyn Lau MD Jul 18, 2016 22:38
--- NOTE | 2016-07-18 22:39 | HHI.FF ---
Face to Face Verification Diagnosis: (1) UTI (urinary tract infection) (2) Generalized weakness (3) Anemia Physical Therapy Order: Evaluate and Treat Home Health Nursing Order: Nursing assessment with vital signs I have seen patient Joselin Mcmillan on 07/18/16. My clinical findings support the need for the requested home health care services because: Deconditioned w/ increased weakness I certify that my clinical findings support that this patient is homebound because: Unsafe to leave home unassisted Brandyn Lau MD Jul 18, 2016 22:38
[2016-07-18] MEDS: PANTOPRAZOLE SODIUM 40 MG VIAL IV PUSH SCH (23:03)
[2016-07-18 23:52] LABS: RETIC % 4.2 % (0.4-3.0); REVIEW FLAG FINAL
[2016-07-19] VITALS (14 sets, daily range): BP systolic 108–166; BP diastolic 45–74; PULSE 65–79; RESP 18–20; TEMP 96.5–98.6; O2SAT 95–100
[2016-07-19 00:14] LABS: FERRITIN 20 NG/ML (8-252); TRANSFERRIN IRON PROFILE 321 MG/DL (200-360)
[2016-07-19] MEDS: PIPERACIL-TAZO 3.375 GM PREMIX 50 ML IV SCH ×4 (01:00→10:22)
[2016-07-19 05:53] LABS: INTERNATIONAL NORMALIZED RATIO 2.1 RATIO; POTASSIUM 3.2 MEQ/L (3.5-5.1); PROTHROMBIN TIME - PATIENT 24.4 SEC (9.8-11.6)
[2016-07-19 05:59] LABS: MAGNESIUM 2.3 MG/DL (1.5-2.5)
[2016-07-19 06:04] LABS: AUTOMATED NEUTROPHIL # 4.9 TH/MM3 (1.8-7.7); BASOPHIL # 0.1 TH/MM3 (0-0.2); BASOPHIL % 0.7 % (0.0-2.0); EOSINOPHIL # 0.4 TH/MM3 (0-0.4); EOSINOPHIL % 5.5 % (0.0-4.0); HEMATOCRIT 24.8 % (35.0-46.0); HEMO FLAGS DIFF FINAL; LYMPH % 20.8 % (9.0-44.0); LYMPHOCYTE # 1.6 TH/MM3 (1.0-4.8); MEAN CELL VOLUME 79.6 FL (80.0-100.0); MEAN CORPUSCULAR HEMOGLOBIN 25.2 PG (27.0-34.0); MEAN CORPUSCULAR HGB CONC 31.6 % (32.0-36.0); MONO % 8.5 % (0.0-8.0); NEUT % 64.5 % (16.0-70.0); PLATELET COUNT 329 TH/MM3 (150-450); RED BLOOD COUNT 3.11 MIL/MM3 (4.00-5.30); RED CELL DISTRIBUTION WIDTH 19.6 % (11.6-17.2); WHITE BLOOD COUNT 7.7 TH/MM3 (4.0-11.0)
[2016-07-19] MEDS: GABAPENTIN 300 MG CAP PO SCH ×2 (06:28→20:19)
[2016-07-19] MEDS ORDERED: PEG (High)/E-LYTE SOLN 4000 ML BTL PO ONE (08:00)
--- NOTE | 2016-07-19 08:24 | MB ---
cc: MONAE CARMONA M.D. DATE OF CONSULTATION 07/19/[address] Brandyn Lau DATE OF 1940 REASON FOR CONSULTATION Symptomatic anemia. HISTORY OF PRESENT ILLNESS Ms. Mcmillan is a 76-year-old lady with multiple medical problems who is visiting here from [place]. She was admitted to the hospital with worsening weakness, somnolence, fatigue, shortness of breath with exertion, bilateral extremity swelling. Also she complained of some back pain worsened with movement. She was noted to have anemia and no indication of melena, hematemesis, hematochezia, epistaxis or bleeding from any other sites. Today she noticed some pinkish urine in the Paniagua and also she stated she had one episode of red blood per rectum while she was wiping. She had a colonoscopy and endoscopy 5 years ago. She had a couple of polyps which were removed, unclear what type. There was no history of dysphagia, odynophagia, weight loss or weight gain. PAST MEDICAL HISTORY 1. CHF. 2. Reflux. 3. Restless leg syndrome. 4. Hyperlipidemia. 5. Hypertension. 6. Anxiety. 7. Chronic musculoskeletal pain. PAST SURGICAL HISTORY 1. Cardiac catheterization with ablation. 2. Right lower lobe lobectomy for lung cancer. 3. Hysterectomy. 4. Cervical fusion. 5. Rotator cuff surgery. 6. Cataract surgery. MEDICATIONS AT HOME 1. Lortab. 2. Naproxen. 3. Metoprolol. 4. Tylenol. 5. Gabapentin. 6. Coumadin. 7. Lipitor. 8. Aspirin. 9. Folic acid. 10. Lasix. ALLERGIES CODEINE. MORPHINE. FAMILY HISTORY No family history of colon cancer or any other GI pathology. SOCIAL HISTORY No smoking, drinking or drug use. PHYSICAL EXAMINATION GENERAL: On clinical exam she is sitting comfortably in bed in no acute distress. VITAL SIGNS: Her blood pressure is 133/56, temperature 97.6, pulse is 79, respiration 18. HEENT: PERRLA. NECK: No JVD. LYMPHATICS: No lymphadenopathy. CHEST: Clear to auscultation and palpation. CARDIOVASCULAR: S1, S2. No murmur. ABDOMEN: Soft, nontender. Bowel sounds are present. PROGRESSIVE ASSEM[employer]ER [employer]TER: Awake, alert, oriented x 3. No focal signs identified. LABORATORY DATA Her hemoglobin is going up and down; it was 8.4, went down to 7.9, then it went up to 8.1, currently 7.8. MCV 79, platelets 379. Her PT/INR is 2.1 and 24.4. Chemistry suggestive of BUN 26, creatinine 1.3. Iron is 51 and saturation 11.3. Liver enzymes normal. IMAGING STUDIES The patient had a CT of the abdomen and pelvis which was suggestive of a small right effusion with minimal linear atelectasis, a small hiatal hernia, calcified gallstones without ductal dilatation. No acute findings. Mild anasarca and colonic diverticulosis. IMPRESSION Ms. Mcmillan is a 76-year-old lady admitted with increased weakness. She has shortness of breath, found to have anemia which could be the cause of her symptoms. No indication of active bleed at this time. Mild hematuria, possible secondary to Paniagua insertion. RECOMMENDATIONS 1. Clear liquid diet. 2. Upper endoscopy and colonoscopy will be scheduled tomorrow, unless indicated otherwise. 3. If hemoglobin less than 7.5, consider transfusing her at least 1 unit of PRBC. 4. Supportive care. I like to thank Dr. Lau for referring her to our office for consultation. Her Coumadin is on hold at this point. Thank you again. We will continue to follow the patient along with you. MD KATIE LuaB/ANIRUDH /7:55 AM /8:15 AM MARIBEL
[2016-07-19] MEDS ORDERED: ASPIRIN 81 MG CHEW TAB CHEW SCH (09:00)
[2016-07-19] MEDS ORDERED: FUROSEMIDE 20 MG/2 ML VIAL IV ONE (10:15)
[2016-07-19] MEDS ORDERED: SODIUM CHLOR 0.9% 250 ML INJ 250 ML IV ONE (10:15)
[2016-07-19] MEDS ORDERED: POTASSIUM CHLORIDE 10 MEQ CONTROLLED RELEASE TAB PO ONE (10:15)
[2016-07-19] MEDS ORDERED: FUROSEMIDE 20 MG/2 ML VIAL IV PUSH ONE (10:15)
[2016-07-19] MEDS: FUROSEMIDE 20 MG TAB PO SCH (10:23)
[2016-07-19] MEDS: METOPROLOL SUCCINATE 50 MG EXTENDED RELEASE TAB PO SCH (10:23)
[2016-07-19] MEDS: SODIUM CHLORIDE 0.9% FLUSH 10 ML FLUSH IV FLUSH SCH ×2 (10:24→20:51)
[2016-07-19] MEDS: PANTOPRAZOLE SODIUM 40 MG VIAL IV PUSH SCH ×2 (10:29→22:38)
[2016-07-19] MEDS ORDERED: TEMAZEPAM 7.5 MG CAP PO PRN (13:15)
--- NOTE | 2016-07-19 13:26 | HHI.PR ---
Subjective Remarks Patient seen today around 10 AM. Says she is feeling overall better. Says she feels much more alert. Could not sleep very well last night however. Requesting increase nighttime sleep medication. She says she still feels fatigued in general. Objective Vital Signs Date Time Temp Pulse Resp B/P Pulse Ox O2 Delivery O2 Flow Rate FiO2 07/19/16 12:00 97.2 67 18 126/58 100 07/19/16 08:00 97.4 74 18 135/70 95 07/19/16 00:00 97.6 79 18 133/56 96 07/18/16 20:00 96.9 73 18 127/61 98 07/18/16 16:00 97.7 72 18 126/60 97 I/O 07/18/16 07/18/16 07/18/16 07/19/16 07/19/16 07/19/16 07:00 15:00 23:00 07:00 15:00 23:00 Intake Total 360 ml 950 ml 400 ml Output Total 950 ml 500 ml Balance 360 ml 0 ml -100 ml Intake Oral 360 ml 840 ml 400 ml IV Total 110 ml Output Urine Total 950 ml 500 ml # Voids 4 2 # Bowel Movements 1 0 Result Diagram: 07/19/16 0500 07/19/16 0500 Imaging Last Impressions Abdomen/Pelvis CT 07/18/16 0000 Signed Impressions: Service Date/Time: Monday, July 18, 2016 14:46 - CONCLUSION: Small right effusion with minimal linear atelectasis and scarring at the lung bases. Small hiatal hernia. Calcified gallstones without ductal dilatation. No acute findings within the abdomen and pelvis. Mild anasarca. Colonic diverticulosis. Dutch Ulloa MD Renal Ultrasound 07/17/16 0000 Signed Impressions: Service Date/Time: Sunday, July 17, 2016 18:02 - CONCLUSION: 1. No evidence of hydronephrosis. 2. There is cortical thinning of both kidneys. 3. There appears to be a complex cyst along the midpole left kidney. 4. The upper pole the left looks somewhat lobulated. Cannot completely exclude a mass in this location. Therefore, if clinically indicated recommend a CT scan of the abdomen with IV contrast Juan Alberto Lopez MD Chest X-Ray 07/17/16 0000 Signed Impressions: Service Date/Time: Sunday, July 17, 2016 15:43 - CONCLUSION: Mild blunting of the right costophrenic angle which could represent either small effusion versus pleural thickening. Otherwise, the lungs are clear bilaterally. Juan Alberto Lopez MD Objective Remarks GENERAL: Patient sitting up in recliner. Appears comfortable. No acute distress. Alert and oriented 3. SKIN: Warm and dry. HEAD: Normocephalic. EYES: No scleral icterus. No injection or drainage. NECK: Supple, trachea midline. No JVD or lymphadenopathy. CARDIOVASCULAR: Regular rate and rhythm without murmurs, gallops, or rubs. RESPIRATORY: Breath sounds equal bilaterally. No accessory muscle use. GASTROINTESTINAL: Abdomen soft, non-tender, nondistended. MUSCULOSKELETAL: No cyanosis still with +2 bilateral lower extremity edema. Slightly improved. No erythema. BACK: Nontender without obvious deformity. No CVA tenderness. A/P Assessment and Plan 07/19. GI scope tomorrow. Transfused 2 units. Diuresis. -Mild hematuria after Paniagua placed, could be secondary to anticoagulation, Paniagua irritation. Remove Paniagua. - Consult diagnostic radiology for evaluation of kidney mass. -Increased temazepam for sleeping difficulty. -May need FFP tomorrow morning, depending on INR.. //Toxic encephalopathy. -Still oriented. -Likely secondary to gabapentin buildup and toxicity due to kidney failure. Recent increase in gabapentin dosage -No focal signs or symptoms. We will keep on lower dose of gabapentin. Continue to treat UTI as below -Improved. Continue to monitor. //Urinary tract infection. Acute. -Grossly positive urinalysis. Await urine culture. -Due to concern for anatomic abnormality regarding kidney, ceftriaxone was switched to Zosyn. CT abdomen with no acute findings. Patient with known history of kidney mass. -Grossly positive urinalysis, however culture is normal sigrid. Repeat urinalysis. //Acute kidney injury.. Avoid any naproxen. Improving with fluids. -Improving. Continue to monitor. //History of CHF. //Fluid overload. -Bilateral lower extremity edema. -BNP elevated in the 400s.. Possible small pleural effusion however this is likely secondary to right upper lobectomy. -Gentle diuresis, fluid restrictions. Avoid NSAIDs -07/19. Continue gentle diuresis. Extra Lasix due to transfusion. //History of atrial fibrillation. Continue beta larisa. -INR therapeutic. With anemia. No history of stroke. Hold warfarin. //Hyperlipidemia. Chronic. Continue statin //Kidney mass. //Mild hematuria -Possible left kidney mass seen on ultrasound. Due to acute kidney injury with a history of CHF, noncontrast CT was performed for evaluation of mass. 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 -She'll need to follow-up with primary care as outpatient. -Mild hematuria after Paniagua placed, could be secondary to anticoagulation, Paniagua irritation. Remove Paniagua. - Consult diagnostic radiology for evaluation of kidney mass. //Symptomatic Anemia. Appears to be acute. //Suspected GI bleed. Possible Secondary to NSAIDs. -Still with fatigue after improvement in kidney failure, -Iron studies support iron deficiency anemia. -Appreciate GI assistance. Plan for scope tomorrow. //Sleep disorder. Temazepam as necessary. Prophylaxis. Patient is on warfarin for history of atrial fibrillation. Discharge Planning Pending GI scope. Likely go home in the next 2 days with home health. Brandyn Lau MD Jul 19, 2016 13:26
[2016-07-19] MEDS ORDERED: POTASSIUM CHLORIDE 20 MEQ CONTROLLED RELEASE TAB PO ONE (14:00)
[2016-07-19] MEDS: PIPERACIL-TAZO 2.25 GM PREMIX 50 ML IV SCH ×2 (14:47→20:50)
[2016-07-19] MEDS ORDERED: WARFARIN SOD 3 MG TAB PO SCH ×2 (16:00)
[2016-07-19] MEDS ORDERED: ATORVASTATIN 40 MG TAB PO SCH (21:00)
[2016-07-20] VITALS (9 sets, daily range): BP systolic 115–150; BP diastolic 59–77; PULSE 65–78; RESP 15–18; TEMP 97.1–98.9; O2SAT 93–99
[2016-07-20] MEDS: PIPERACIL-TAZO 2.25 GM PREMIX 50 ML IV SCH ×3 (03:17→15:00)
[2016-07-20 03:29] LABS: HEMATOCRIT 30.3 % (35.0-46.0); REVIEW FLAG FINAL
[2016-07-20 06:11] LABS: AUTOMATED NEUTROPHIL # 4.5 TH/MM3 (1.8-7.7); BASOPHIL # 0.1 TH/MM3 (0-0.2); BASOPHIL % 0.9 % (0.0-2.0); EOSINOPHIL # 0.4 TH/MM3 (0-0.4); EOSINOPHIL % 5.9 % (0.0-4.0); HEMATOCRIT 30.9 % (35.0-46.0); HEMO FLAGS DIFF FINAL; LYMPH % 19.9 % (9.0-44.0); LYMPHOCYTE # 1.4 TH/MM3 (1.0-4.8); MEAN CELL VOLUME 82.3 FL (80.0-100.0); MEAN CORPUSCULAR HEMOGLOBIN 26.8 PG (27.0-34.0); MEAN CORPUSCULAR HGB CONC 32.5 % (32.0-36.0); MONO % 9.2 % (0.0-8.0); NEUT % 64.1 % (16.0-70.0); PLATELET COUNT 299 TH/MM3 (150-450); RED BLOOD COUNT 3.75 MIL/MM3 (4.00-5.30); RED CELL DISTRIBUTION WIDTH 18.8 % (11.6-17.2)
[2016-07-20 06:21] LABS: POTASSIUM 3.9 MEQ/L (3.5-5.1)
[2016-07-20 06:22] LABS: INTERNATIONAL NORMALIZED RATIO 1.5 RATIO; PROTHROMBIN TIME - PATIENT 16.8 SEC (9.8-11.6)
[2016-07-20 06:26] LABS: BICARBONATE 32.4 MEQ/L (21.0-32.0)
[2016-07-20] MEDS: GABAPENTIN 300 MG CAP PO SCH (07:00)
[2016-07-20] MEDS ORDERED: WARFARIN SOD 5 MG TAB PO ONE (09:15)
[2016-07-20] MEDS ORDERED: DEXTROSE 5% IN WATE 1000ML INJ 1,000 ML IV SCH (09:15)
[2016-07-20] MEDS ORDERED: FUROSEMIDE 20 MG/2 ML VIAL IV PUSH ONE ×2 (09:15→14:00)
--- NOTE | 2016-07-20 09:47 | HHI.PR ---
Subjective Remarks pt feels well. no sob. no n/v. no cp. no back pain, no dysuria. some bleeding from nose on tissue. no need for nc oxygen anymore though. Objective Vital Signs Date Time Temp Pulse Resp B/P Pulse Ox O2 Delivery O2 Flow Rate FiO2 07/20/16 09:15 93 Nasal Cannula 2.00 07/20/16 09:14 98.9 71 15 142/59 99 07/20/16 00:45 97.1 73 16 115/59 99 07/20/16 00:35 98.2 78 18 131/68 97 07/19/16 22:15 96.5 74 18 148/62 98 07/19/16 22:00 98.2 78 18 131/68 97 07/19/16 21:40 99 Nasal Cannula 2.00 07/19/16 20:35 97.2 69 18 166/70 100 07/19/16 19:30 97.5 76 18 156/70 100 07/19/16 17:59 98 Nasal Cannula 2.00 07/19/16 16:25 96.5 65 18 110/68 98 07/19/16 16:15 98.6 75 19 108/45 99 07/19/16 16:05 07/19/16 16:02 96.6 65 18 124/74 100 07/19/16 16:00 98.6 72 20 124/74 96 07/19/16 15:47 96.6 65 18 124/74 100 07/19/16 12:00 97.2 67 18 126/58 100 I/O 07/19/16 07/19/16 07/19/16 07/20/16 07/20/16 07/20/16 07:00 15:00 23:00 07:00 15:00 23:00 Intake Total 1550 ml 4800 ml 525 ml Output Total 1500 ml 3150 ml Balance 50 ml 1650 ml 525 ml Intake Oral 1550 ml 4800 ml IV Total 525 ml Output Urine Total 1500 ml 3150 ml # Voids 2 2 1 # Bowel Movements 0 3 9 Result Diagram: 07/20/16 0555 07/20/16 0555 Objective Remarks GENERAL: Patient sitting up in recliner. walking around room as well. Appears comfortable. No acute distress. Alert and oriented 3. SKIN: Warm and dry. HEAD: Normocephalic. EYES: No scleral icterus. No injection or drainage. NECK: Supple, trachea midline. No JVD or lymphadenopathy. CARDIOVASCULAR: Regular rate and rhythm without murmurs, gallops, or rubs. RESPIRATORY: Breath sounds equal bilaterally. No accessory muscle use. GASTROINTESTINAL: Abdomen soft, non-tender, nondistended. MUSCULOSKELETAL: No cyanosis still with +2 bilateral lower extremity edema. Again, Slightly improved. No erythema. BACK: Nontender without obvious deformity. No CVA tenderness. A/P Assessment and Plan 07/20. -Patient feeling well. No shortness of breath. No back pain. Feels like going home. GI scope today. Hemoglobin yoli appropriately. She denies history of stroke. Could go off of anticoagulation if GI recommends. -Repeat urinalysis today pending. -Hypernatremia. We'll add D5, Lasix as well. //Toxic encephalopathy. -Still oriented. -Likely secondary to gabapentin buildup and toxicity due to kidney failure. Recent increase in gabapentin dosage -No focal signs or symptoms. We will keep on lower dose of gabapentin. Continue to treat UTI as below -Resolved. Back to baseline.. Continue to monitor. //Urinary tract infection. Acute. -Grossly positive urinalysis. Await urine culture. -Due to concern for anatomic abnormality regarding kidney, ceftriaxone was switched to Zosyn. CT abdomen with no acute findings. Patient with known history of kidney mass. -Grossly positive urinalysis, however culture is normal isgrid. Repeat urinalysis pending. //Acute kidney injury.. Avoid any naproxen. Improving with fluids. -Resolved. Creatinine 1.2. Better than baseline. With fluid restriction. Continue to monitor. //History of CHF. //Fluid overload. -Bilateral lower extremity edema. -BNP elevated in the 400s.. Possible small pleural effusion however this is likely secondary to right upper lobectomy. -Gentle diuresis, fluid restrictions. Avoid NSAIDs -07/19. Continue gentle diuresis. Extra Lasix due to transfusion. -Kidney failure resolved with fluid restriction. //History of atrial fibrillation. Continue beta larisa. -INR 1.5. With anemia. No history of stroke. Hold warfarin for now for EGD/ colonoscopy. //Hyperlipidemia. Chronic. Continue statin //Kidney mass. //Mild hematuria -Possible left kidney mass seen on ultrasound. Due to acute kidney injury with a history of CHF, noncontrast CT was performed for evaluation of mass. 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 -She'll need to follow-up with primary care as outpatient. -Mild hematuria after Paniagua placed, could be secondary to anticoagulation, Paniagua irritation. Remove Paniagua. - Consult diagnostic radiology for evaluation of kidney mass. //Symptomatic Anemia. Appears to be acute. //Suspected GI bleed. Possible Secondary to NSAIDs. -Still with fatigue after improvement in kidney failure, -Iron studies support iron deficiency anemia. -Appreciate GI assistance. Plan for scope tomorrow. //Sleep disorder. Temazepam as necessary. Prophylaxis. Patient is on warfarin for history of atrial fibrillation. Discharge Planning Pending GI scope. -CT abdomen to rule out kidney abscess. Will discharge home this afternoon if labs improved or tomorrow morning. Brandyn Lau MD Jul 20, 2016 09:47
[2016-07-20] MEDS: METOPROLOL SUCCINATE 50 MG EXTENDED RELEASE TAB PO SCH (09:59)
[2016-07-20] MEDS: FUROSEMIDE 20 MG TAB PO SCH (09:59)
[2016-07-20] MEDS: SODIUM CHLORIDE 0.9% FLUSH 10 ML FLUSH IV FLUSH SCH (09:59)
[2016-07-20] MEDS: PANTOPRAZOLE SODIUM 40 MG VIAL IV PUSH SCH (09:59)
[2016-07-20 10:21] LABS: BLOOD, URINE NEG (NEG); GLUCOSE,URINE NEG (NEG); KETONE, URINE NEG (NEG); NITRITE,URINE NEG (NEG)
[2016-07-20] MEDS ORDERED: IOHEXOL 350 MG/ML 10 ML VIAL (for RAD DIAG) IV ONE (10:28)
[2016-07-20 11:26] LABS: METHOD OF COLLECTION CLEAN CATCH; RBC, URINE 0-3 /hpf (0-3); SQUAMOUS EPITHELIAL CELL URINE 0-5 /hpf (0-5); URINE COLOR YELLOW (YELLW/STRAW); WBC, URINE 0-2 /hpf (0-5)
[2016-07-20 11:27] LABS: COMMENT (UR) CULT NOT INDICATED; CULTURE IF INDICATED CULT NOT INDICATED
--- NOTE | 2016-07-20 11:35 | RADHPO ---
EXAM DATE/TIME: 07/20/2016 10:16 [place] COMPARISON: US KIDNEY/RENAL/BLADDER, July 17, 2016, 18:02. CT ABDOMEN & PELVIS W/O CONTRAST, July 18, 2016, 14 :46. INDICATIONS : Abnormal ultrasound. Evaluate left kidney. IV CONTRAST: 70 cc Omnipaque 350 (iohexol) IV ORAL CONTRAST: No oral contrast ingested. RADIATION DOSE: 20.48 CTDIvol (mGy) MEDICAL HISTORY : Cardiovascular disease. Gastroesophageal reflux disease. Carcinoma, lung.Hypertension. Anticoagulant therapy. SURGICAL HISTORY : Hysterectomy. Right lower lung lobectomy. Orthopedic surgery. ENCOUNTER: Subsequent ACUITY: 3 days PAIN SCALE: 0/10 LOCATION: abdomen pelvis TECHNIQUE: Volumetric scanning of the abdomen and pelvis was performed. Using automated exposure control and ad justment of the mA and/or kV according to patient size, radiation dose was kept as low as reasonably achievable to obtain optimal diagnostic quality images. FINDINGS: There is a moderate right-sided pleural effusion. Cholelithiasis is noted. Liver, spleen, pancreas, b ilateral adrenal glands, and right kidney are unremarkable. The hypoechoic left renal lesion noted on recent ultrasound is not clearly visualized on CT. Atherosclerotic calcification of the aortoiliac v essels are noted. Urinary bladder is unremarkable. The patient is status post hysterectomy. Extensive sigmoid diverticulosis is identified. No evidence for bowel obstruction. No adenopathy or aneurysm. There is an exophytic simple cyst at the lower pole of the right kidney measuring 2.4 cm. There are d egenerative changes of the lumbar spine greatest at L5-S1. CONCLUSION: 1. A left renal mass is not clearly visualized on the current study. 2. Right renal cyst. 3. Atherosclerosis. 4. Diverticulosis without diverticulitis. 5. Right-sided pleural effusion. Sanjay Crespo MD on July 20, 2016 at 11:28 Board Certified Radiologist. This report was verified electronically.
[2016-07-20 12:09] LABS: BICARBONATE 28.7 MEQ/L (21.0-32.0)
[2016-07-20] MEDS ORDERED: OXYGENTANK NAS.CANULA (14:32)
[2016-07-20] MEDS ORDERED: WARFARIN SOD 1 MG TAB PO SCH ×3 (16:00→18:00)
[2016-07-20] MEDS ORDERED: PROPOFOL 200 MG/20 ML AMP IV ONE (16:27)
--- NOTE | 2016-07-20 16:42 | GIPROC ---
[facility] [address] [place] [address], [id number] EGD PROCEDURE REPORT EXAM DATE: 07/20/2016 PATIENT NAME: Joselin Mcmillan MR #: [id number] BIRTHDATE: 1940 ATTENDING: Zaida Forman MD ORDER #: [id number] PIE CUTTER: Dakota Pérez and Omaira Joel STATUS: inpatient INDICATIONS: The patient is a 76 yr old female here for an EGD due to iron deficiency anemia PROCEDURE PERFORMED: EGD w/ biopsy MEDICATIONS: None and Per Anesthesia. TOPICAL ANESTHETIC: CONSENT: The patient understands the risks and benefits of the procedure and understands that these risks include, but are not limited to: sedation, allergic reaction, infection, perforation and/or bleeding. Alternative means of evaluation and treatment include, among others: physical exam, x-rays, and/or surgical intervention. The patient elects to proceed with this endoscopic procedure. medical equipment was checked for proper function. Hand hygiene and appropriate measures for infection prevention was taken. After the risks, benefits and alternatives of the procedure were thoroughly explained, Informed consent was verified, confirmed and timeout was successfully executed by the treatment team. The patient was anesthetized with topical anesthesia and the EC-[id number] (Pedi C) and [id number] endoscope was introduced through the mouth and advanced to the second portion of the duodenum. Retroflexed views revealed no abnormalities The gastroscope was then slowly withdrawn and removed. ESOPHAGUS: There was LA Class B esophagitis noted. A biopsy was performed using cold forceps. Sample sent for histology. STOMACH: A single non-bleeding, shallow and clean-based ulcer ranging between 3-7mm in size was found in the gastric antrum. Biopsies were taken at edge of the ulcer. ADVERSE EVENTS: There were no complications. IMPRESSIONS: 1. There was LA Class B esophagitis noted; biopsy was performed 2. Single ulcer ranging between 3-7mm in size was found in the gastric antrum; biopsies were taken 3. Retroflexed views revealed no abnormalities RECOMMENDATIONS: 1. Await biopsy results. Biopsy results will not be ready for 7-10 days. If you don't hear from us in two weeks, call our office for biopsy results. 2. Anti-reflux regimen 3. Continue PPI 4. Avoid NSAIDS PATIENT CONDITION: stable DISPOSITION: Inpatient REPEAT EXAM: Return 3 months EGD Zaida Forman MD eSigned: Zaida Forman MD 07/20/2016 4:42 PM cc: PATIENT NAME: Joselin Mcmillan MR#: [id number]
[2016-07-20] MEDS ORDERED: NEUR300C PO (18:57)
[2016-07-20] MEDS ORDERED: PANT40TA3 PO (18:57)
[2016-07-20] MEDS ORDERED: TEMA7.5C9 PO (18:57)
[2016-07-20] MEDS ORDERED: CIPR250T52 PO (18:57)
[2016-07-20] MEDS ORDERED: FURO40TA PO (18:57)
--- NOTE | 2016-07-21 06:40 | HHI.DS ---
Discharge Summary Admission Date Jul 20, 2016 at 08:41 Discharge Date: Jul 20, 2016 Admitting Diagnosis generalized weakness, UTI, anemia, renal insufficiency (1) Anemia ICD Code: D64.9 (2) Generalized weakness ICD Code: R53.1 (3) UTI (urinary tract infection) ICD Code: N39.0 (4) COPD (chronic obstructive pulmonary disease) ICD Code: J44.9 (5) Renal insufficiency ICD Code: N28.9 Procedures EGD, as well as colonoscopy. Please see report. Brief History - From Admission Patient presents to ER for 1 month history of progressively worsening somnolence , generalized fatigue, shortness of breath with exertion without chest pain, as well as bilateral lower extremity swelling. She also reports a one-month history of bilateral, constant, sharp low back pain worsened with movement. Recent increase of gabapentin dose 1 month ago. Patient said she has been experience somnolent over the past month, will fall asleep while sitting up. Friends say that she appears drunk at times. Patient had an echocardiogram 1.5 months ago which was reportedly okay. She denies any dysuria. Denies any fevers, nausea, vomiting, diarrhea, constipation. Patient left [facility] 1 month ago on vacation. She reports that creatinine prior to vacation was initially 1.4, however just before vacation 1.5. Echocardiogram performed prior to her vacation reportedly without any change according to her primary log marker back home. Again, she does note that gabapentin was increased one month ago. She has been taking naproxen as needed for her back. She denies any black tarry stools or bloody stool. CBC/BMP: 07/20/16 1315 07/20/16 1140 Significant Findings Laboratory Tests Test 07/18/16 07/18/16 07/18/16 07/19/16 06:50 08:51 22:50 03:15 Red Blood Count 3.05 MIL/MM3 (4.00-5.30) Hemoglobin 7.9 GM/DL 8.1 GM/DL 9.7 GM/DL (11.6-15.3) (11.6-15.3) (11.6-15.3) Hematocrit 24.6 % 30.3 % (35.0-46.0) (35.0-46.0) Mean Corpuscular Hemoglobin 26.0 PG (27.0-34.0) Red Cell Distribution Width 19.9 % (11.6-17.2) Monocytes (%) (Auto) 8.5 % (0.0-8.0) Eosinophils (%) (Auto) 7.0 % (0.0-4.0) Eosinophils # (Auto) 0.5 TH/MM3 (0-0.4) Carbon Dioxide Level 32.8 MEQ/L (21.0-32.0) Blood Urea Nitrogen 33 MG/DL (7-18) Creatinine 1.50 MG/DL (0.50-1.00) Estimat Glomerular Filtration 34 ML/MIN (>89) Rate Aspartate Amino Transf 45 U/L (15-37) (AST/SGOT) Total Protein 5.8 GM/DL (6.4-8.2) Albumin 2.9 GM/DL (3.4-5.0) Prothrombin Time 35.7 SEC (9.8-11.6) Reticulocyte Count 4.2 % (0.4-3.0) Percent Iron Saturation 11.3 % (20-50) Test 07/19/16 07/20/16 07/20/16 07/20/16 05:00 05:55 10:10 11:40 Red Blood Count 3.11 MIL/MM3 3.75 MIL/MM3 (4.00-5.30) (4.00-5.30) Hemoglobin 7.8 GM/DL 10.0 GM/DL (11.6-15.3) (11.6-15.3) Hematocrit 24.8 % 30.9 % (35.0-46.0) (35.0-46.0) Mean Corpuscular Volume 79.6 FL (80.0-100.0) Mean Corpuscular Hemoglobin 25.2 PG 26.8 PG (27.0-34.0) (27.0-34.0) Mean Corpuscular Hemoglobin 31.6 % Concent (32.0-36.0) Red Cell Distribution Width 19.6 % 18.8 % (11.6-17.2) (11.6-17.2) Monocytes (%) (Auto) 8.5 % (0.0-8.0) 9.2 % (0.0-8.0) Eosinophils (%) (Auto) 5.5 % (0.0-4.0) 5.9 % (0.0-4.0) Prothrombin Time 24.4 SEC 16.8 SEC (9.8-11.6) (9.8-11.6) Potassium Level 3.2 MEQ/L (3.5-5.1) Carbon Dioxide Level 34.0 MEQ/L 32.4 MEQ/L (21.0-32.0) (21.0-32.0) Blood Urea Nitrogen 26 MG/DL (7-18) Creatinine 1.30 MG/DL 1.20 MG/DL 1.20 MG/DL (0.50-1.00) (0.50-1.00) (0.50-1.00) Estimat Glomerular Filtration 40 ML/MIN (>89) 44 ML/MIN (>89) 44 ML/MIN (>89) Rate Calcium Level 8.4 MG/DL 7.8 MG/DL 8.4 MG/DL (8.5-10.1) (8.5-10.1) (8.5-10.1) Albumin 2.8 GM/DL 2.7 GM/DL (3.4-5.0) (3.4-5.0) Mean Platelet Volume 6.8 FL (7.0-11.0) Sodium Level 146 MEQ/L (136-145) Urine Protein 30 mg/dL (NEG-TRACE) Test 07/20/16 13:15 Hemoglobin 11.5 GM/DL (11.6-15.3) Imaging Last Impressions Abdomen/Pelvis CT 07/20/16 0000 Signed Impressions: Service Date/Time: Wednesday, July 20, 2016 10:16 - CONCLUSION: 1. A left renal mass is not clearly visualized on the current study. 2. Right renal cyst. 3. Atherosclerosis. 4. Diverticulosis without diverticulitis. 5. Right-sided pleural effusion. Sanjay Crespo MD Renal Ultrasound 07/17/16 0000 Signed Impressions: Service Date/Time: Sunday, July 17, 2016 18:02 - CONCLUSION: 1. No evidence of hydronephrosis. 2. There is cortical thinning of both kidneys. 3. There appears to be a complex cyst along the midpole left kidney. 4. The upper pole the left looks somewhat lobulated. Cannot completely exclude a mass in this location. Therefore, if clinically indicated recommend a CT scan of the abdomen with IV contrast Juan Alberto Lopez MD Chest X-Ray 07/17/16 0000 Signed Impressions: Service Date/Time: Sunday, July 17, 2016 15:43 - CONCLUSION: Mild blunting of the right costophrenic angle which could represent either small effusion versus pleural thickening. Otherwise, the lungs are clear bilaterally. Juan Alberto oLpez MD Hospital Course Encephalopathy likely multifactorial, with kidney failure, symptomatic anemia improved with decrease in gabapentin dose, replacement of hemoglobin. Chest x- ray with possible small pleural effusion on the right on admission, however likely from patient's history of right lower lobectomy. Creatinine 1.8 on admission, increased from 1.5 one month prior. BNP in the 400s, patient with history of reported CHF, Bilateral lower extremity swelling, JVD. Acute kidney injury evaluation included renal ultrasound with no hydronephrosis, however echogenic kidneys, and questionable mass, however repeat CT shows no mass. This responded well to gentle diuresis as well as treatment of UTI, with creatinine 1.2 on discharge, better than baseline. Urinalysis grossly positive for UTI on admission with 100-200 white blood cells , and patient was started on broad-spectrum antibiotics. This grew out normal sigrid. Repeat urinalysis appears to resolved. Although without urinary symptoms, Due to presentation, patient was continued on ciprofloxacin to complete treatment course. Acute kidney injury improved with diuresis, likely cardiorenal syndrome. Bilateral lower extremity edema improved slightly as well. Patient will be discharged on diuretics, fluid restrictions. Instructions to follow with primary care to adjust regimen. Patient also with symptomatic anemia with hemoglobin in the eights, trending down to the sevens, improving with 2 units of RBCs during admission. Due to naproxen history, GI was consult and, EGD performed which shows gastric ulcer. She will be discharged on PPI twice a day. Follow-up with primary care. Coffee was also performed with colon polyp found. She is instructed to follow up results of colonoscopy biopsy Patient was requiring 2 L of oxygen most of hospitalization, however this improved by discharge, patient passing oxygen evaluation. She does say that she has had oxygen recommended in the past, however refuses. for problem-based summary from most recent progress note, please see below. 07/20. -Patient feeling well. No shortness of breath. No back pain. Feels like going home. GI scope today. Hemoglobin yoli appropriately. She denies history of stroke. Could go off of anticoagulation if GI recommends. -Repeat urinalysis today pending. -Hypernatremia. We'll add D5, Lasix as well. //Toxic encephalopathy. -Still oriented. -Likely secondary to gabapentin buildup and toxicity due to kidney failure. Recent increase in gabapentin dosage -No focal signs or symptoms. We will keep on lower dose of gabapentin. Continue to treat UTI as below -Resolved. Back to baseline.. Continue to monitor. //Urinary tract infection. Acute. -Grossly positive urinalysis. Await urine culture. -Due to concern for anatomic abnormality regarding kidney, ceftriaxone was switched to Zosyn. CT abdomen with no acute findings. Patient with known history of kidney mass. -Grossly positive urinalysis, however culture is normal sigrid. Repeat urinalysis pending. //Acute kidney injury.. Avoid any naproxen. Improving with fluids. -Resolved. Creatinine 1.2. Better than baseline. With fluid restriction. Continue to monitor. //History of CHF. //Fluid overload. -Bilateral lower extremity edema. -BNP elevated in the 400s.. Possible small pleural effusion however this is likely secondary to right upper lobectomy. -Gentle diuresis, fluid restrictions. Avoid NSAIDs -07/19. Continue gentle diuresis. Extra Lasix due to transfusion. -Kidney failure resolved with fluid restriction. //History of atrial fibrillation. Continue beta larisa. -INR 1.5. With anemia. No history of stroke. Hold warfarin for now for EGD/ colonoscopy. //Hyperlipidemia. Chronic. Continue statin //Kidney mass. //Mild hematuria -Possible left kidney mass seen on ultrasound. Due to acute kidney injury with a history of CHF, noncontrast CT was performed for evaluation of mass. 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 -She'll need to follow-up with primary care as outpatient. -Mild hematuria after Paniagua placed, could be secondary to anticoagulation, Paniagua irritation. Remove Paniagua. - Consult diagnostic radiology for evaluation of kidney mass. //Symptomatic Anemia. Appears to be acute. //Suspected GI bleed. Possible Secondary to NSAIDs. -Still with fatigue after improvement in kidney failure, -Iron studies support iron deficiency anemia. -Appreciate GI assistance. Plan for scope tomorrow. //Sleep disorder. Temazepam as necessary. Prophylaxis. Patient is on warfarin for history of atrial fibrillation. Discharge Planning Pending GI scope. -CT abdomen to rule out kidney abscess. Will discharge home this afternoon if labs improved or tomorrow morning. Pt Condition on Discharge: Good Discharge Disposition: Disch w/ Home Health Serv Discharge Time: > 30 minutes Discharge Instructions DIET: Follow Instructions for: Heart Healthy Diet Fluid Restrictions: 1.8Liters Activities you can perform: Regular-No Restrictions Follow up Referrals: Gastroenterology - 1 Week with Mikayla Correa MD PCP Follow-up - 3-5 Days New Medications: Ciprofloxacin (Cipro) 250 Mg Tab 250 MG PO BID Infection Days 8 Ref 0 TAB Oxygen tank (Oxygen tank) 1 Ea Tank 2 LITER [employer] CONTINUOUS Oxygen Concentrator Portable Gaseous 2 L/min via Nasal Cannula Continuous For 99 months HYPOXEMIA PREVENTION #2 CYLINDER Pantoprazole (Pantoprazole) 40 Mg Tab 40 MG PO BIDAC Reflux #30 Ref 0 TAB Gabapentin (Neurontin) 300 Mg Cap 300 MG PO BID@07,19 neuropathy Days 30 CAP Temazepam (Restoril) 7.5 Mg Cap 15 MG PO HS PRN SLEEP Days 7 CAP Changed Medications: Furosemide (Furosemide) 40 Mg Tab 20 MG PO BID water pill #30 Ref 0 TAB (Changed from: DAILY) Continued Medications: Aspirin (Aspirin) 81 Mg Chew 81 MG CHEW DAILY Ref 0 TAB Atorvastatin (Lipitor) 40 Mg Tab 40 MG PO HS Cholesterol Management #30 Ref 0 TAB Diphenhydramine-Acetaminophen (Tylenol Pm Extra Strength) 25-500 Mg Tab Folic Acid (Folic Acid) 400 Mcg Tab 400 MCG PO DAILY Nutritional Supplement Ref 0 TAB Hydrocodone-Acetaminophen (Lortab) 5-325 Mg Tab 1 TAB PO Q6H PRN PAIN #30 Ref 0 TAB Metoprolol Succinate ER 24 HR (Metoprolol Succinate ER 24 HR) 50 Mg Tab 50 MG PO DAILY #30 Ref 0 TAB Discontinued Medications: Gabapentin (Gabapentin) 800 Mg Tab 800 MG PO TID #90 Ref 0 TAB Naproxen (Naproxen) 500 Mg Tab 500 MG PO BID #60 Ref 0 TAB Warfarin (Coumadin) 1 Mg Tab 1.5 MG PO SUTUWETHSA Prevent Blood Clot #30 Ref 0 TAB Warfarin (Coumadin) 3 Mg Tab 3 MG PO MF Prevent Blood Clot #30 Ref 0 TAB Brandyn Lau MD Jul 21, 2016 06:40
[2016-07-30] MEDS ORDERED: HYDR12.57 PO (11:34)
[2016-07-30] MEDS ORDERED: WARF-58 PO (11:34)
== END 2016-07-20 19:33 | disposition home or self-care (01) | DRG 811 ==
LOC: PHED 14:47 → PHEDA 16:31 → PH3A 17:36 → OBSVTOIN 07-20 08:41
PROVIDERS: ADMIT Internal Medicine; ATTEND Internal Medicine
PROC: 30233N1 Transfusion of Nonautologous Red Blood Cells into Peripheral Vein, Percutaneous Approach (ICD-10-PCS; 2016-07-19)
PROC: 0DBP8ZX Excision of Rectum, Via Natural or Artificial Opening Endoscopic, Diagnostic (ICD-10-PCS; 2016-07-20)
PROC: 0DB58ZX Excision of Esophagus, Via Natural or Artificial Opening Endoscopic, Diagnostic (ICD-10-PCS; principal; 2016-07-20 16:00)
PROC: 0DB68ZX Excision of Stomach, Via Natural or Artificial Opening Endoscopic, Diagnostic (ICD-10-PCS; 2016-07-20 16:00)
DX: D50.9 Iron deficiency anemia, unspecified (principal); G92 Toxic encephalopathy; N17.9 Acute kidney failure, unspecified; I50.9 Heart failure, unspecified; I48.91 Unspecified atrial fibrillation; N28.89 Other specified disorders of kidney and ureter; K25.9 Gastric ulcer, unspecified as acute or chronic, without hemorrhage or perforation; G25.81 Restless legs syndrome; N39.0 Urinary tract infection, site not specified; Z90.2 Acquired absence of lung [part of]; T42.6X5A Adverse effect of other antiepileptic and sedative-hypnotic drugs, initial encounter; R60.0 Localized edema; Z79.01 Long term (current) use of anticoagulants; E78.5 Hyperlipidemia, unspecified; G47.9 Sleep disorder, unspecified; K57.30 Diverticulosis of large intestine without perforation or abscess without bleeding; K62.1 Rectal polyp; K64.8 Other hemorrhoids; K64.4 Residual hemorrhoidal skin tags; Z85.118 Personal history of other malignant neoplasm of bronchus and lung; Z95.1 Presence of aortocoronary bypass graft; I25.10 Atherosclerotic heart disease of native coronary artery without angina pectoris; K21.0 Gastro-esophageal reflux disease with esophagitis; G89.29 Other chronic pain; M79.1 Myalgia; F41.9 Anxiety disorder, unspecified
CPT/HCPCS: 36430; 71010; 74176; 74177; 76775; 76937; 80048; 80053; 80069; 81001; 82550; 82607; 82728; 83540; 83550; 83735; 83880; 85014; 85018; 85025; 85044; 85610; 85730; 86850; 86900; 86901; 86920; 87086; 88305; 88312; 93005; 94620; 94664; 96365; C9113; G0378; G8987-GP; G8988-GP; J0696; J1644; J1940; J2543; J7050; J7070; J7613; P9016; Q9963; Q9967

== ENCOUNTER → 2016-07-28 | Outpatient (CLI) | payer MEDICARE ==
[~2016-07-28] MED LIST changes: -BENZ1CAP34 PO; +CIPR250T52 PO; -COUM1TAB PO; -COUM3TAB PO; -DIAZ5 PO; -GABA800T PO; +HYDR12.57 PO; +K-TA10TA PO; -MICR12.5 PO; -NAPR500T PO; +NEUR300C PO; +OXYGENTANK NAS.CANULA; +PANT40TA3 PO; -POTA1TAB4 PO; +POTA20TA5 PO; +TEMA7.5C9 PO; +WARF-58 PO
[2016-07-28 11:33] LABS: PROTHROMBIN TIME - PATIENT 10.9 SEC (9.8-11.6)
== END ==
LOC: PLAB 10:30
DX: I48.0 Paroxysmal atrial fibrillation (principal)
CPT/HCPCS: 36415; 85610

== ENCOUNTER → 2016-07-29 | Outpatient (CLI) | payer MEDICARE ==
[2016-07-29 16:24] LABS: BICARBONATE 35.5 MEQ/L (21.0-32.0); MAGNESIUM 2.4 MG/DL (1.5-2.5)
[2016-07-29 16:36] LABS: HEMATOCRIT 39.5 % (35.0-46.0); MEAN CELL VOLUME 81.1 FL (80.0-100.0); MEAN CORPUSCULAR HEMOGLOBIN 26.5 PG (27.0-34.0); MEAN CORPUSCULAR HGB CONC 32.7 % (32.0-36.0); PLATELET COUNT 359 TH/MM3 (150-450); RED BLOOD COUNT 4.87 MIL/MM3 (4.00-5.30); RED CELL DISTRIBUTION WIDTH 18.7 % (11.6-17.2); REVIEW FLAG FINAL; WHITE BLOOD COUNT 9.3 TH/MM3 (4.0-11.0)
[2016-07-30 10:06] LABS: POTASSIUM 2.8 MEQ/L (3.5-5.1)
== END ==
LOC: PLAB 12:13
PROVIDERS: ATTEND Internal Medicine Interventional Cardiology
DX: I25.10 Atherosclerotic heart disease of native coronary artery without angina pectoris (principal); I48.1 Persistent atrial fibrillation; I10 Essential (primary) hypertension; R60.0 Localized edema; R55 Syncope and collapse; I65.29 Occlusion and stenosis of unspecified carotid artery
CPT/HCPCS: 36415; 80048; 83735; 85027

== ENCOUNTER 2016-07-30 10:58 | Inpatient (IN) | payer MEDICARE ==
[~2016-07-30] VITALS: Ht 157.5 cm; Wt 78.0 kg
[2016-07-30] VITALS (7 sets, daily range): BP systolic 106–122; BP diastolic 49–61; PULSE 54–69; RESP 16–18; TEMP 97.5–98.2; O2SAT 94–98
[~2016-07-30 10:58] MED LIST changes: -HYDR12.57 PO; -K-TA10TA PO; -POTA20TA5 PO; -WARF-58 PO
[2016-07-30] MEDS ORDERED: HYDR12.57 PO ×2 (11:34)
[2016-07-30] MEDS ORDERED: WARF-58 PO ×2 (11:34)
[2016-07-30] MEDS ORDERED: SODIUM CHLORID 0.9% 500 ML INJ 500 ML IV SCH (12:00)
[2016-07-30] MEDS ORDERED: POTASSIUM CHLOR 20 MEQ PREMIX 100 ML IV ONE (12:00)
[2016-07-30] MEDS ORDERED: POTASSIUM CHLORIDE 25 MEQ EFFERVESCENT TAB PO ONE (12:00)
[2016-07-30 12:16] LABS: POTASSIUM 2.2 MEQ/L (3.5-5.1)
[2016-07-30 12:17] LABS: BICARBONATE 38.1 MEQ/L (21.0-32.0); MAGNESIUM 2.4 MG/DL (1.5-2.5)
[2016-07-30] MEDS ORDERED: MAGNESIUM HYDROXIDE SUSP 30 ML CUP PO PRN (13:00)
[2016-07-30] MEDS ORDERED: SODIUM CHLORIDE 0.9% FLUSH 10 ML FLUSH IV FLUSH PRN (13:00)
[2016-07-30] MEDS ORDERED: NALOXONE HCL 0.4 MG/ML AMP IV PRN (13:00)
[2016-07-30] MEDS ORDERED: ONDANSETRON HCL 4 MG/2 ML VIAL IVP PRN (13:00)
[2016-07-30] MEDS ORDERED: ACETAMINOPHEN 325 MG TAB PO PRN (13:00)
--- NOTE | 2016-07-30 13:08 | PD ---
HPI Chief Complaint: Abnormal Results Time Seen by Provider: 11:29 Travel History International Travel<30 days: No Contact w/Intl Traveler<30days: No Traveled to known affect area: No History of Present Illness HPI This 76-year-old woman who presents to the emergency Department sent in by her doctor for low potassium. She was admitted to the hospital for UTI, encephalopathy, and CHF exacerbation from July 17 through July 21. During that time her Lasix was doubled to 20 mg twice daily. She's also on HCTZ. She was on potassium in the past but is not on potassium now. She had routine blood work with Dr. Encarnacion, for follow-up, and her potassium was 2.8. She has no symptoms. History Past Medical History Narrative Medical CHF GERD Restless leg syndrome Hyperlipidemia Hypertension Anxiety Chronic muscle skeletal pain History of Yusuf medina, on warfarin Tetanus Vaccination: < 5 Years Influenza Vaccination: Yes Menopausal: Yes Social History Alcohol Use: No Tobacco Use: No Allergies-Medications (Allergen,Severity, Reaction): Coded Allergies: Codeine (Verified Allergy, Unknown, 07/30/16) Morphine (Verified Allergy, Unknown, 07/30/16) Reported Meds & Prescriptions Reported Meds & Active Scripts Active Restoril (Temazepam) 7.5 Mg Cap 15 Mg PO HS PRN 7 Days Pantoprazole (Pantoprazole Sodium) 40 Mg Tab 40 Mg PO BIDAC Neurontin (Gabapentin) 300 Mg Cap 300 Mg PO BID@07,19 30 Days Furosemide 40 Mg Tab 20 Mg PO BID Lortab (Hydrocodone-Acetaminophen) 5-325 Mg Tab 1 Tab PO Q6H PRN Reported Warfarin 3 Mg Tab 3 Mg PO DAILY Hydrochlorothiazide 12.5 Mg Cap 12.5 Mg PO DAILY Metoprolol Succinate ER 24 HR (Metoprolol Succinate) 50 Mg Tab 50 Mg PO DAILY Lipitor (Atorvastatin Calcium) 40 Mg Tab 40 Mg PO HS Aspirin 81 Mg Chew 81 Mg CHEW DAILY Folic Acid 400 Mcg Tab 800 Mcg PO DAILY Review of Systems Except as stated in HPI: all other systems reviewed are Neg Physical Exam Narrative GENERAL: Well-appearing 76-year-old woman, no acute distress. SKIN: Focused skin assessment warm/dry. HEAD: Atraumatic. Normocephalic. EYES: Pupils equal and round. No scleral icterus. No injection or drainage. ENT: No nasal bleeding or discharge. Mucous membranes pink and moist. NECK: Trachea midline. No JVD. CARDIOVASCULAR: Regular rate and rhythm. No murmur appreciated. RESPIRATORY: No accessory muscle use. Clear to auscultation. Breath sounds equal bilaterally. GASTROINTESTINAL: Abdomen soft, non-tender, nondistended. Hepatic and splenic margins not palpable. MUSCULOSKELETAL: No obvious deformities. No clubbing. No cyanosis. No edema. NEUROLOGICAL: Awake and alert. No obvious cranial nerve deficits. Motor grossly within normal limits. Normal speech. PSYCHIATRIC: Appropriate mood and affect; insight and judgment normal. Data Data Last Documented VS Vital Signs Date Time Temp Pulse Resp B/P Pulse Ox O2 Delivery O2 Flow Rate FiO2 07/30/16 12:26 54 18 107/49 98 Room Air 07/30/16 11:10 98.2 Orders Basic Metabolic Panel (Bmp) (07/30/16 11:48) Magnesium (Mg) (07/30/16 11:48) Iv Access Insert/Monitor (07/30/16 11:48) Sodium Chlorid 0.9% 500 Ml Inj (Ns 500 M (07/30/16 12:00) Potassium Chlor 20 Meq Premix (Kcl 20 Me (07/30/16 12:00) Potassium Chloride Eff (K-Lyte Cl Eff) (07/30/16 12:00) Electrocardiogram (07/30/16 ) Admit To Inpatient (07/30/16 ) Vital Signs (Adult) Q4H (07/30/16 12:56) Activity Oob With Assistance (07/30/16 12:56) Biller / Telemetry .CONTINUOUS (07/30/16 12:56) Diet Regular Basic (07/30/16 Lunch) Sodium Chloride 0.9% Flush (Ns Flush) (07/30/16 13:00) Sodium Chloride 0.9% Flush (Ns Flush) (07/30/16 21:00) Acetaminophen (Tylenol) (07/30/16 13:00) Ondansetron Inj (Zofran Inj) (07/30/16 13:00) Magnesium Hydroxide Liq (Milk Of Magnesi (07/30/16 13:00) Basic Metabolic Panel (Bmp) (07/31/16 06:00) Complete Blood Count With Diff (07/31/16 06:00) Electrocardiogram (07/31/16 08:00) Scd Bilateral/Knee High DEO.BID (07/30/16 12:56) Naloxone Inj (Narcan Inj) (07/30/16 13:00) Inpatient Certification (07/30/16 ) Potassium, Random Urine (K) (07/30/16 12:59) Urinalysis - C+S If Indicated (07/30/16 12:59) Chloride, Random Urine (07/30/16 12:59) Sodium, Random Urine (07/30/16 12:59) Labs Laboratory Tests Test 07/30/16 11:30 Sodium Level 138 MEQ/L Potassium Level 2.2 MEQ/L Chloride Level 90 MEQ/L Carbon Dioxide Level 38.1 MEQ/L Anion Gap 10 MEQ/L Blood Urea Nitrogen 39 MG/DL Creatinine 1.70 MG/DL Estimat Glomerular Filtration 29 ML/MIN Rate Random Glucose 165 MG/DL Calcium Level 9.6 MG/DL Magnesium Level 2.4 MG/DL MDM Medical Decision Making Medical Screen Exam Complete: Yes Emergency Medical Condition: Yes Interpretation(s) My review of EKG: Sinus bradycardia rate of 56, leftward axis, QT interval prolonged with a QTC of 491, no definite evidence of acute ischemia, inferior Q waves. LABS: BMP remarkable for potassium of 2.2, elevated BUN and creatinine, Magnesium 2.4 Differential Diagnosis Dehydration, over diuresis, a lecture light abnormality, other Narrative Course Medical decision making 76 year-old woman, appears dehydrated, is on double dose of Lasix following a CHF exacerbation. Setting for hypokalemia. Labs show marked hypokalemia. EKG shows long QT. We'll plan on admission for treatment, hydration, reassessment. Diagnosis Primary Impression: Hypokalemia Additional Impression: Dehydration Admitting Information Admitting Physician Requests: it Marco Kelly MD Jul 30, 2016 13:08
[2016-07-30 13:17] LABS: BLOOD, URINE NEG (NEG); GLUCOSE,URINE NEG (NEG); KETONE, URINE NEG (NEG); NITRITE,URINE NEG (NEG); PH, URINE 5.5 (5.0-8.5)
[2016-07-30 13:22] LABS: COMMENT (UR) CULT NOT INDICATED; CULTURE IF INDICATED CULT NOT INDICATED; METHOD OF COLLECTION CLEAN CATCH; SQUAMOUS EPITHELIAL CELL URINE 0-5 /hpf (0-5); URINE COLOR YELLOW (YELLW/STRAW)
[2016-07-30] MEDS: POTASSIUM CHLOR 20 MEQ PREMIX 100 ML IV SCH ×2 (14:06→18:28)
--- NOTE | 2016-07-30 15:01 | HHI.HP ---
[facility]Staff Admission Diagnosis hypokalemia, dehydration Diagnoses: Chief Complaint: Low potassium. Travel History International Travel<30 Days: No Contact w/Intl Traveler <30 Da: No Traveled to Known Affected Are: No History of Present Illness Ms. Mcmillan is a 76-year-old female with a history of hyperlipidemia, hypertension, atrial fibrillation who presents to the emergency department on the advice of her physician due to hypokalemia. She was admitted to the hospital for UTI, encephalopathy, and CHF exacerbation from July 17 through July 21. During that time her Lasix was doubled to 20 mg twice daily. She has not been taking potassium supplement for about last two weeks. She reports no nausea, vomiting or diarrhea. Denies any CP, SOB, fever, chills. Denies any changes in bowel or bladder habits. She reports poor appetite and poor oral intake. Review of Systems Except as stated in HPI: all other systems reviewed are Neg Past Family Social History Past Medical History CHF GERD Restless leg syndrome Hyperlipidemia Hypertension Anxiety Chronic muscle skeletal pain History of AKhloe med[place], on warfarin CAD s/p 1 stent. Past Surgical History Hysterectomy Rotator cuff surgery Ablation for SVT RLL lung resection Reported Medications Restoril (Temazepam) 7.5 Mg Cap 15 Mg PO HS PRN 7 Days Pantoprazole (Pantoprazole Sodium) 40 Mg Tab 40 Mg PO BIDAC Neurontin (Gabapentin) 300 Mg Cap 300 Mg PO BID@07,19 30 Days Furosemide 40 Mg Tab 20 Mg PO BID Lortab (Hydrocodone-Acetaminophen) 5-325 Mg Tab 1 Tab PO Q6H PRN Reported Warfarin 3 Mg Tab 3 Mg PO DAILY Hydrochlorothiazide 12.5 Mg Cap 12.5 Mg PO DAILY Metoprolol Succinate ER 24 HR (Metoprolol Succinate) 50 Mg Tab 50 Mg PO DAILY Lipitor (Atorvastatin Calcium) 40 Mg Tab 40 Mg PO HS Aspirin 81 Mg Chew 81 Mg CHEW DAILY Folic Acid 400 Mcg Tab 800 Mcg PO DAILY Allergies: Coded Allergies: Codeine (Verified Allergy, Unknown, 07/30/16) Morphine (Verified Allergy, Unknown, 07/30/16) Family History Mother - Renal cell carcinoma No family history of Alzheimer's or Parkinson's. Social History Denies using tobacco or alcohol. Physical Exam Vital Signs Vital Signs Date Time Temp Pulse Resp B/P Pulse Ox O2 Delivery O2 Flow Rate FiO2 07/30/16 14:01 58 18 107/49 98 Room Air 07/30/16 12:26 54 18 107/49 98 Room Air 07/30/16 11:20 95 Room Air 07/30/16 11:20 54 18 122/56 95 Room Air 07/30/16 11:10 98.2 67 16 121/56 95 Physical Exam GENERAL: This is a well-nourished, well-developed patient, in no apparent distress. SKIN: No rashes, ecchymoses or lesions. Warm and dry. HEAD: Atraumatic. Normocephalic. No temporal or scalp tenderness. EYES: Pupils equal round and reactive. No injection or drainage. ENT: Nose without bleeding, purulent drainage or septal hematoma. Airway patent. NECK: Trachea midline. No lymphadenopathy. Supple, nontender, no meningeal signs. CARDIOVASCULAR: Regular rate and rhythm without murmurs, gallops, or rubs. No JVD. RESPIRATORY: Clear to auscultation. Breath sounds equal bilaterally. No wheezes , rales, or rhonchi. GASTROINTESTINAL: Abdomen soft, non-tender, nondistended. No guarding. MUSCULOSKELETAL: Extremities without clubbing, cyanosis, or edema. NEUROLOGICAL: Awake and alert. Cranial nerves II through XII intact. No focal neurological deficits. Normal speech. Laboratory Laboratory Tests Test 07/30/16 07/30/16 11:30 13:05 Sodium Level 138 Potassium Level 2.2 Chloride Level 90 Carbon Dioxide Level 38.1 Anion Gap 10 Blood Urea Nitrogen 39 Creatinine 1.70 Estimat Glomerular Filtration 29 Rate Random Glucose 165 Calcium Level 9.6 Magnesium Level 2.4 Urine Collection Type CLEAN CATCH Urine Color YELLOW Urine Turbidity CLEAR Urine pH 5.5 Urine Specific [place] 1.007 Urine Protein NEG Urine Glucose (UA) NEG Urine Ketones NEG Urine Occult Blood NEG Urine Nitrite NEG Urine Bilirubin NEG Urine Leukocyte Esterase NEG Urine Squamous Epithelial 0-5 Cells Microscopic Urinalysis Comment CULT NOT INDICATED Result Diagram: 07/30/16 1130 Assessment and Plan Problem List: (1) Hypokalemia ICD Code: E87.6 Status: Acute (2) Acute kidney injury ICD Code: N17.9 Status: Acute (3) Afib ICD Code: I48.91 Status: Acute (4) CAD (coronary artery disease) ICD Code: I25.10 Status: Acute Assessment and Plan Ms. Mcmillan is a pleasant 76 year old female with a history of CHF, CAD who presented to the ED on 07/30/2016 due to hypokalemia noted by her staff research scientist's office. - Hypokalemia - Acute Kidney Injury - Continue replacing with IV KCL and PO KCL. Will re-check K+ level at 5PM and in the AM again. - Continue IV NS @125cc/hour. - EKG reviewed by me, QT prolongation noted. QTc is around 491. - Mg level 2.4. - Atrial fibrillation - Continue metoprolol succinate 50mg Qday. - Patient has not been taking her Warfarin. We discussed about Apixaban. She is going to check with her insurance/pharmacy. - If the cost is reasonable, she would like to switch to Apixaban on 2016. - Hyperlipidemia - CAD s/p one stent - Continue BB, Atorvastatin 40mg QHS, Aspirin 81mg Qday. Full code. Heparin SQ. Cher Rick DO Jul 30, 2016 15:01
[2016-07-30] MEDS ORDERED: ACETAMINOPHEN/HYDROcodone 325 MG/5 MG TAB PO PRN (16:30)
[2016-07-30] MEDS ORDERED: TEMAZEPAM 7.5 MG CAP PO PRN (16:30)
[2016-07-30] MEDS: SODIUM CHLOR 0.9% 1000 ML INJ 1,000 ML IV SCH (18:25)
[2016-07-30] MEDS ORDERED: ATORVASTATIN 40 MG TAB PO SCH (21:00)
[2016-07-30] MEDS: HEPARIN SODIUM - SQ 10,000 UNITS/ML VIAL SQ SCH (22:33)
[2016-07-30] MEDS: SODIUM CHLORIDE 0.9% FLUSH 10 ML FLUSH IV FLUSH SCH (22:34)
[2016-07-30] MEDS: POTASSIUM CHLORIDE 20 MEQ CONTROLLED RELEASE TAB PO SCH (22:34)
[2016-07-31 01:05] VITALS: BP 112/53; PULSE 64; RESP 12; TEMP 97.6; O2SAT 94
[2016-07-31] MEDS: SODIUM CHLOR 0.9% 1000 ML INJ 1,000 ML IV SCH ×3 (03:22→11:58)
[2016-07-31 04:29] VITALS: BP 104/57; PULSE 66; RESP 18; TEMP 97.8; O2SAT 90
[2016-07-31] MEDS: PANTOPRAZOLE SOD 40 MG DELAYED RELEASE TAB PO SCH ×2 (06:02→15:05)
[2016-07-31 08:00] VITALS: BP 122/59; PULSE 56; PULSE 62; RESP 20; TEMP 96.3; O2SAT 94
--- NOTE | 2016-07-31 08:13 | HHI.PR ---
Subjective Remarks Follow up for hypokalemia, MATTHEW. Patient is doing well. No acute concerns. I spent more than 45 minutes discussing hypokalemia and how we replace with IV, PO KCL. Also discussed at length regarding anti-coagulation for Afib. Objective Vitals Vital Signs Date Time Temp Pulse Resp B/P Pulse Ox O2 Delivery O2 Flow Rate FiO2 07/31/16 04:29 97.8 66 18 104/57 90 07/31/16 01:05 97.6 64 12 112/53 94 07/30/16 21:42 97.9 63 18 106/53 94 07/30/16 21:00 69 07/30/16 15:58 97.5 63 18 118/61 95 07/30/16 14:01 58 18 107/49 98 Room Air 07/30/16 12:26 54 18 107/49 98 Room Air 07/30/16 11:20 95 Room Air 07/30/16 11:20 54 18 122/56 95 Room Air 07/30/16 11:10 98.2 67 16 121/56 95 I/O 07/30/16 07/30/16 07/30/16 07/31/16 07/31/16 07/31/16 07:00 15:00 23:00 07:00 15:00 23:00 Intake Total 620 ml 1200 ml Balance 620 ml 1200 ml Intake Oral 120 ml IV Total 500 ml 1200 ml # Voids 1 3 Result Diagram: 07/30/16 171 Objective Remarks GENERAL: Alert, Oriented x 3, NAD. SKIN: Warm and dry. HEAD: Normocephalic. EYES: No scleral icterus. No injection or drainage. NECK: Supple, trachea midline. No JVD or lymphadenopathy. CARDIOVASCULAR: Regular rate and rhythm without murmurs, gallops, or rubs. RESPIRATORY: Breath sounds equal bilaterally. No accessory muscle use. GASTROINTESTINAL: Abdomen soft, non-tender, nondistended. MUSCULOSKELETAL: No cyanosis, or edema. BACK: Nontender without obvious deformity. No CVA tenderness. Procedures None. A/P Problem List: (1) Hypokalemia ICD Code: E87.6 Status: Acute (2) Acute kidney injury ICD Code: N17.9 Status: Acute (3) Afib ICD Code: I48.91 Status: Acute (4) CAD (coronary artery disease) ICD Code: I25.10 Status: Acute Assessment and Plan Ms. Mcmillan is a pleasant 76 year old female with a history of CHF, CAD who presented to the ED on 07/30/2016 due to hypokalemia noted by her protection engineer's office. - Hypokalemia 2.2 --> 3.5 --> 2.8 today. - Acute Kidney Injury - Continue replacing with IV KCL and PO KCL. BMP at 5PM. If Creatinine continues show improvement and K is > 3.0, we can discharge patient home with PO KCL - Continue IV NS @125cc/hour. - EKG reviewed by me, QT prolongation noted. QTc is around 491-499 ms. - Mg level 2.2 today. - Atrial fibrillation - Continue metoprolol succinate 50mg Qday. - Discussed at length regarding Anticoagulation. Patient's [id number] Score is 3 to 4. - I reviewed last admission EGD and discharge summary. Patient did not have any overt GI bleed. EGD showed one ulcer. - I discussed with patient and her about risk and benefit of warfarin. Given the fact that she did not have any overt bleeding and currently does not have any bleeding episodes, her higher [id number] score argue for anti-coagulation. - I also went over extensively regarding Apixaban vs. warfarin. Patient and her would like to continue Warfarin for now. - Will resume patient's home dose Warfarin. I instructed them to do BMP and INR within next 2-3 days. - Hyperlipidemia - CAD s/p one stent - Continue BB, Atorvastatin 40mg QHS, discontinue Aspirin. Full code. Heparin SQ. Discharge patient to home Condition on discharge: Improved Heart healthy Diet as tolerated Ad Cristina activity Rx written: - Potassium 20 mEq twice a day for 4 days then potassium 10 mEq daily. - Warfarin 3 mg daily - Reduce furosemide 20 mg twice a day to 20 mg daily - Reduce pantoprazole 40 mg twice a day to 40 mg daily. PT/INR, BMP in the next 2-3 days. Follow-up with primary care physician within one week. Patient is also advised to follow up with her Water Meter Mechanic in [place]. Cher Rick DO Jul 31, 2016 08:12 Cher Rick DO Jul 31, 2016 8:12 am
[2016-07-31 08:46] LABS: AUTOMATED NEUTROPHIL # 2.5 TH/MM3 (1.8-7.7); BASOPHIL # 0.1 TH/MM3 (0-0.2); BASOPHIL % 1.3 % (0.0-2.0); EOSINOPHIL # 0.5 TH/MM3 (0-0.4); HEMATOCRIT 36.7 % (35.0-46.0); HEMO FLAGS DIFF FINAL; LYMPH % 32.1 % (9.0-44.0); LYMPHOCYTE # 1.7 TH/MM3 (1.0-4.8); MEAN CELL VOLUME 82.3 FL (80.0-100.0); MEAN CORPUSCULAR HEMOGLOBIN 26.2 PG (27.0-34.0); MEAN CORPUSCULAR HGB CONC 31.8 % (32.0-36.0); MONO % 8.8 % (0.0-8.0); NEUT % 48.8 % (16.0-70.0); PLATELET COUNT 316 TH/MM3 (150-450); RED BLOOD COUNT 4.46 MIL/MM3 (4.00-5.30); RED CELL DISTRIBUTION WIDTH 17.4 % (11.6-17.2); WHITE BLOOD COUNT 5.3 TH/MM3 (4.0-11.0)
[2016-07-31] MEDS ORDERED: ASPIRIN 81 MG CHEW TAB CHEW SCH (09:00)
[2016-07-31] MEDS: SODIUM CHLORIDE 0.9% FLUSH 10 ML FLUSH IV FLUSH SCH (09:00)
[2016-07-31] MEDS: METOPROLOL SUCCINATE 50 MG EXTENDED RELEASE TAB PO SCH ×2 (09:00→09:24)
[2016-07-31 09:06] LABS: BICARBONATE 32.3 MEQ/L (21.0-32.0)
[2016-07-31 09:10] LABS: POTASSIUM 2.8 MEQ/L (3.5-5.1)
[2016-07-31] MEDS: POTASSIUM CHLORIDE 20 MEQ CONTROLLED RELEASE TAB PO SCH (09:24)
[2016-07-31] MEDS: HEPARIN SODIUM - SQ 10,000 UNITS/ML VIAL SQ SCH (09:25)
[2016-07-31] MEDS: POTASSIUM CHLOR 20 MEQ PREMIX 100 ML IV SCH ×2 (09:25→11:49)
[2016-07-31 12:00] VITALS: BP 113/55; PULSE 66; RESP 20; TEMP 98.1; O2SAT 94
--- NOTE | 2016-07-31 13:39 | EKG ---
Date Performed: 07/30/2016 Time Performed: 12:29:40 PTAGE: 76 years EKG: Sinus bradycardia with sinus arrhythmia with 1st degree A-V block Prolonged QT interval Con chemical waste management technician left atrial abnormality Inferior infarct - age undetermined Low QRS voltages in precordial lead s Abnormal ECG Compared to prior tracing no significant change PREVIOUS TRACING : 07/17/2016 14.58 DOCTOR: Pedro Luis Nguyen Interpretating Date/Time 07/31/2016 13:35:14
--- NOTE | 2016-07-31 13:42 | EKG ---
Date Performed: 07/31/2016 Time Performed: 08:50:16 PTAGE: 76 years EKG: Sinus bradycardia with PAC(s) with 1st degree A-V block Prolonged QT interval Low QRS volta ges in precordial leads Inferior infarct age undetermined Continued Clinical correlation is recommend ed Abnormal ECG NO PREVIOUS TRACING DOCTOR: Pedro Luis Nguyen Interpretating Date/Time 07/31/2016 13:37:32
[2016-07-31] MEDS ORDERED: POTASSIUM CHLOR 20 MEQ PREMIX 100 ML IV SCH (14:00)
[2016-07-31] MEDS ORDERED: K-TA10TA PO (15:02)
[2016-07-31] MEDS ORDERED: POTA20TA5 PO (15:02)
[2016-07-31] MEDS ORDERED: PANT40TA3 PO (15:02)
[2016-07-31] MEDS ORDERED: FURO40TA PO (15:02)
[2016-07-31] MEDS ORDERED: POTASSIUM CHLOR 20 MEQ PREMIX 100 ML IV ONE (15:15)
[2016-07-31 16:00] VITALS: BP 123/63; PULSE 68; RESP 20; TEMP 98.3; O2SAT 95
[2016-07-31] MEDS ORDERED: WARFARIN SOD 3 MG TAB PO SCH (16:00)
[2016-07-31] MEDS ORDERED: GABAPENTIN 300 MG CAP PO ONE (16:15)
[2016-07-31 17:23] LABS: POTASSIUM 3.5 MEQ/L (3.5-5.1)
[2016-07-31 17:26] LABS: BICARBONATE 30.5 MEQ/L (21.0-32.0)
[2016-07-31] MEDS ORDERED: GABAPENTIN 300 MG CAP PO SCH (19:00)
== END 2016-07-31 18:05 | disposition home or self-care (01) | DRG 641 ==
LOC: PHED 10:58 → OBSVTOIN 12:59 → PHEDA 12:59 → UNDOADMOB 13:09 → PHEDA 14:44 → PH3A 14:44 → UNDODISOB 07-31 18:05
PROVIDERS: ADMIT Hospitalist; ATTEND Hospitalist
DX: E87.6 Hypokalemia (principal); E86.0 Dehydration; N17.9 Acute kidney failure, unspecified; I48.91 Unspecified atrial fibrillation; I11.0 Hypertensive heart disease with heart failure; I50.9 Heart failure, unspecified; E78.5 Hyperlipidemia, unspecified; R55 Syncope and collapse; I65.29 Occlusion and stenosis of unspecified carotid artery; G25.81 Restless legs syndrome; I25.10 Atherosclerotic heart disease of native coronary artery without angina pectoris; K21.9 Gastro-esophageal reflux disease without esophagitis; Z79.01 Long term (current) use of anticoagulants; Z95.5 Presence of coronary angioplasty implant and graft; R60.0 Localized edema
CPT/HCPCS: 36415; 80048; 81001; 82436; 83735; 84132; 84133; 84300; 85025; 85027; 93005; 96365; J1644; J3480; J7030; J7040

== ENCOUNTER → 2016-08-02 | Outpatient (CLI) | payer MEDICARE ==
[~2016-08-02] MED LIST changes: +HYDR12.57 PO; +K-TA10TA PO; +POTA20TA5 PO; +WARF-58 PO
[2016-08-02 11:16] LABS: POTASSIUM 3.8 MEQ/L (3.5-5.1)
[2016-08-02 11:18] LABS: PROTHROMBIN TIME - PATIENT 11.4 SEC (9.8-11.6)
[2016-08-02 11:20] LABS: BICARBONATE 27.4 MEQ/L (21.0-32.0)
== END ==
LOC: PLAB 09:45
PROVIDERS: ATTEND Hospitalist
DX: I48.91 Unspecified atrial fibrillation (principal); E87.6 Hypokalemia
CPT/HCPCS: 36415; 80048; 85610